=== PATIENT | male | born 2000 | race Caucasian/White ===

== ENCOUNTER 2024-07-15 16:33 | Outpatient (CLI) | payer MEDICARE, MEDICAID, SELFPAY ==
--- OUTSIDE RECORDS SUMMARY | 2024-07-15 16:37 | XMS_ITS | Encounter Summary ---
Author Organization [facility] Address [address] [place] [id number] Care Team Providers Care Log Washer Name Role Phone Catia Fontana Jane PA-C Primary Care Provider Vanessa Mathew RN Unavailable [phone] Emily Ross RN Unavailable Unavailable Ari Gee MA Unavailable Unavailable Josefa Mcneil PA-C Unavailable Chaya Nicholson PA-C Unavailable Angelika Coronel MD Unavailable [phone] Angelika Coronel MD Unavailable [phone] Aracelis Borja PhD LP Unavailable [phone] Reason for Visit * Clinically Administered Medications (Routine) - Pending Review Specialty Diagnoses / Procedures Referred By Anjelica gardner Referred To Contact Neurology Diagnoses Cervical dystonia Procedures ZZC BOTULINUM TOXIN A PER 1 UNIT 400 units every 12 weeks Angelika Coronel MD [address] [place] [id number] [facility] [address] [place] [id number] Referral ID Status Reason Start Date Expiration Date V isits Requested Visits Authorized [id number] Pending Review 11/18/2023 10/05/2024 100 100 Encounter Details Date Type Department Care Team (Late st Contact Info) Description 05/18/2024 4:00 PM CDT Office Visit [facility] [address] [place] [address] Angelika Coronel MD [address] [place] [phone] Cervical dystonia (Primary Dx) Social History Tobacco Use Types Packs/Day Years Used Date Smoking Tobacco: Never Smokeless Tobacco: Never Alcohol Use Standard Drinks/Week Comments Never 0 (1 standard drink = 0.6 oz pur e alcohol) AUDIT-C Answer Date Recorded Q1: How often do you have a drink containing alc ohol? Never 02/22/2021 Q2: How many drinks containi ng alcohol do you have on a typical day when you are drinking? Not asked 02/22/2021 Q3: How often do you have six or more drinks on one occasion? Never 02/22/2021 PHQ-2 Answer Date Recorded PHQ-2 Score 0 11/18/2023 Adolescent Education Answer Date Record ed Getting School Help Needed Not on file 07/04 Sex and Gender Information Value Date Recorded Sex Assigned at Male 06/21/2021 8:10 AM CDT Gender Identity Male 06/21/2021 8:10 AM CDT Sexual Orientation Not on file documented as of this encounter Progress Notes * Angelika Coronel MD - 05/18/2024 4:00 PM CDT Movement Disorders Botulinum Toxin Clinic Note Chief Complaint: cervical dystonia History of Present Illness: Davi Strong is a 23 year old male who presents to clinic for botulinum toxin injections for treatment of cervical dystonia. Response to Last Injection: 02/17/24 Onset: About one day, he notices benefit very quickly Benefit from last injections: Did not work as well as previously and neck wanted to go up and to the left. [place] the tightness was 8/10 initially but then got worse about a week later with more pulling. Feels that his movement to the left and right we're less bothersome than up and down Improvement in function/activity: It makes everything easier. All ADLs are easier when botulinum toxin is working. Easier to drive. Wearing off: March 06 (2.5 weeks after injection) Side effects: Feels more tightness this time with more pulling up and left as above. Current Outpatient Medications Medication Sig Dispense Refill acetaminophen (TYLENOL) 325 MG tablet Take 325-650 mg by mouth every 6 hours as needed for mild pain trihexyphenidyl (ARTANE) 2 MG tablet 1/2 tab twice a day for one week then increase to 1/2 tab three times a day for one week then increase to 1 pills three times a day and stay at that dose. (Patient not taking: Reported on 05/18/2024) 90 tablet 5 Allergies: He has No Known Allergies. 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 Depression Neck pain PONV (postoperative nausea and vomiting) S/P deep brain stimulator placement Torsion dystonia Past Surgical History: Procedure Laterality Date ANESTHESIA OUT OF OR MRI ANESTHESIA OUT OF OR MRI N/A 04/12/2021 Procedure: ANESTHESIA OUT OF OR Magnetic resonance imaging Brain @1200; Surgeon: GENERIC ANESTHESIAPROVIDER; Location: [facility] ANESTHESIA OUT OF OR MRI N/A 07/13/2021 Procedure: ANESTHESIA OUT OF OR MAGNETIC RESONANCE IMAGING of BRAIN WITH AND WITHOUT CONTRAST@1400;Surgeon: GENERIC ANESTHESIA PROVIDER; Location: [facility] EYE SURGERY IMPLANT DEEP BRAIN STIMULATION GENERATOR / BATTERY Right 01/21/2022 Procedure: Deep brain stimulator placement, phase II, placement of deep brain stimulator generator/battery over the right chest wall; Surgeon: Toni Blankenship MD; Location: [facility] NOSE SURGERY nasal fracture repair OPTICAL TRACKING SYSTEM INSERTION DEEP BRAIN STIMULATION Right 01/14/2022 Procedure: stealth assisted Right side deep brain stimulator placement, phase I, target right globus pallidus internus, with microelectrode recording; Surgeon: Toni Blankenship MD; Location: [facility] OPTICAL TRACKING SYSTEM INSERTION DEEP BRAIN STIMULATION Left 02/04/2022 Procedure: Stealth Assisted Left side deep brain stimulator placement, phase I & II combined, target left globus pallidus internus, with microelectrode recording and connection to existing generator/battery; Surgeon: Toni Blankenship MD; Location: [facility] REMOVE DEPTH ELECTRODES N/A 05/28/2021 Procedure: Removal of entire deep brain stimulation system hardware including intracranial electrodes and battery/generator in chest wall; Surgeon: Toni Blankenship MD; Location: [facility] STEREOTACTIC INSERTION DEEP BRAIN STIMULATION Social History Socioeconomic History Marital status: Single Spouse name: Not on file Number of children: 0 Years of education: Not on file Highest education level: Not on file Occupational History Occupation: unemployed Tobacco Use Smoking status: Never Smokeless tobacco: Never Substance and Sexual Activity Alcohol use: Never Drug use: Never Sexual activity: Not on file Other Topics Concern Not on file Social History Narrative Not on file Social Determinants of Health Financial Resource Strain: Not on file Food Insecurity: Not on file Transportation Needs: Not on file Physical Activity: Not on file Stress: Not on file Social Connections: Not on file Interpersonal Safety: Not on file Housing Stability: Not on file Family History Problem Relation Age of Onset No Known Problems Mother No Known Problems Father No Known Problems Sister Other - See Comments Brother di tom syndrome Myocardial Infarction Maternal Grandmother Hyperlipidemia Maternal Grandmother Hyperlipidemia Maternal Grandfather Unknown/Adopted Paternal Grandmother Unknown/Adopted Paternal Grandfather Deep Vein Thrombosis No family hx of Anesthesia Reaction No family hx of Physical Examination: Vital Signs: vitals were not taken for this visit. Severe retrocollis Right shoulder elevation Reported tightness at left side, back of the neck when looking to the left. Less tightness when looking to the right but some still present. To lower head, needs to look to the left and then down. BOTULINUM NEUROTOXIN INJECTION PROCEDURES: VERIFICATION OF PATIENT IDENTIFICATION AND PROCEDURE Initials Patient Name [facility] Patient [facility] Procedure Verified by: [facility] Above assessments performed by: Angelika Coronel MD INDICATION/S FOR PROCEDURE/S: Davi Strong is a 23 year old patient with dystonia affecting the head, neck and shoulder girdlemusculature secondary to a diagnosis of generalized dystonia with associated tremor, spasms, loss of volitional motor control and difficulty with activities of daily living. His baseline symptoms have been recalcitrant to oral medications and conservative therapy. He is here today for an injection of Botox. GOAL OF PROCEDURE: The goal of this procedure is to improve volitional motor control associated with dystonic movements. TOTAL DOSE ADMINISTERED: Dose Administered: 385 units Botox Diluent Used: Preservative Free Normal Saline Total Volume of Diluent Used: [address] [facility] #: Botox 100u ([id number]) CONSENT: The risks, benefits, and treatment options were discussed with Davi Strong and he agreed to proceed. Written consent was obtained by [facility]. EQUIPMENT USED: Needle-37mm stimulating/recording EMG/NCS Machine SKIN PREPARATION: Skin preparation was performed using an alcohol wipe. GUIDANCE DESCRIPTION: Electro-myographic guidance was necessary throughout the procedure to accurately identify all areasof dystonic muscles while avoiding injection of non-dystonic muscles, neighboring nerves and nearbyvascular structures. AREA/MUSCLE INJECTED: Visual display of locations injections are scanned into the chart under MEDIA tab. Muscles Injected Units Injected Number of Injections Left splenius capitis 75 (75) 2 Left cervical paraspinals 80 (80) 4 Left trapezius 65 (65) 3 Right splenius capitis 60 (60) 2 Right cervical paraspinals 80 (80) 4 Right SCM 5 (5) 1 Right Trapezius 20 (20) 1 Total Units Injected: 385 Unavoidable Waste: 15 Total Units Billed 400 The patient tolerated the injections without difficulty. Assessment: Davi Strong is a 23 year old male with generalized dystonia. Today we did repeat botulinum toxin injections. Plan Follow-up in 3 months' time to consider repeat injections. Toni Otoole MD Neuromodulation/Movement Disorders Fellow Patient seen and discussed with attending neurologist Dr. Angelika Coronel Neurology Attending Attestation: I personally saw this patient with our fellow and agree with the their findings and plan of care asdocumented in the note. I personally performed salient aspects of the history and neurological examination. I performed and supervised the injections. Angelika Coronel MD Assistant Child Care Teacher of Neurology Movement Disorders Division documented in this encounter Plan of Treatment Upcoming Encounters Date Type Department Care Team (Late st Contact Info) Description 08/19/2024 12:00 PM CODING EDUCATOR Office Visit [facility] [address] [place] [address] Marisel Garcia DO [address] [place] [phone] documented as of this encounter Procedures Procedure Name Priority Date/Time Associated Diagnosis Comments [place] NEEDLE EMG GUIDE W CHEMODENERVATION Routine 05/19/2024 9:33 AM CDT Cervical dystonia [place] CHEMODENERVATION MUSCLE NECK UNILAT Routine 05/19/2024 9:33 AM CDT Cervical dystonia documented in this encounter Visit Diagnoses Diagnosis Cervical dystonia- Primary Spasmodic torticollis documented in this encounter Administered Medications Active Administered Medications - up to 3 most recent administrations Medication Order MAR Action Action Date Dose Rate Site botulinum toxin type A (BOTOX) 100 units injection 400 Units 400 Units, Intramuscular, SEE ADMIN INSTRUCTIONS, Starting on Fri11/18/23 at 1406, For 4 doses, 400 units every 12 weeks $Given by Other 05/18/2024 5:12 PM CDT 385 Units $Given by Other 02/17/2024 3:18 PM CDT 385 Units documented in this encounter Additional Health Concerns Assessment Noted Time PHQ-9 Depression Total Score: 3 02/22/20 11:51 AM CDT documented as of this encounter Care Teams Log Washer Relationship Specialty Start Date End Date Catia Fontana PA-C [facility] [address], [place] [address] PCP - General Physician Trimmer And Reinforcer 02/15/21 Vanessa Mathew RN Specialty Lap Winder Neurology 02/22/21 Emily Ross, JIM Specialty Lap Winder 02/28/21 Ari Gee MA Motor Electrician Neurology 03/20/21 Josefa Mcneil PA-C [facility] [address] [id number] Physician Trimmer And Reinforcer Pediatric Critical Care Medicine 03/23/21 Chaya Nicholson PA-C [address] [place] [address] [phone] Physician Trimmer And Reinforcer Anesthesiology 06/28/21 Angelika Coronel MD [address] [place] [phone] Neurology 08/06/22 Angelika Coronel MD [address] [place] [address] Assigned Neuroscience Provider 09/07/22 Aracelis Borja, PhD LP [address] [place] [address] Assigned Behavioral Health Provider 02/01/23 documented as of this encounter
--- OUTSIDE RECORDS SUMMARY | 2024-07-15 16:37 | XMS_ITS | Referral Summary ---
Author Organization [place] Address [facility] [place] [address] Care Team Providers Care Metal Trim Erector Name Role Phone Catia Fontana Jane PA-C Primary Care Provider Vanessa Mathew RN Unavailable [phone] Emily Ross RN Unavailable Unavailable Ari Gee MA Unavailable Unavailable Josefa Mcneil PA-C Unavailable Chaya Nicholson PA-C Unavailable [phone] Angelika Coronel MD Unavailable [phone] Angelika Coronel MD Unavailable [phone] Aracelis Borja PhD LP Unavailable [phone] Encounters Date Type Department Care Team Description 06/09/2024 Telephone [facility] Neurology [address] [address] Duy Wilson MD Appointment (Neurotoxin) 06/03/2024 Telephone [facility] Neurology [address] [address] Duy Wilson MD Appointment 05/19/2024 MyC Medical Advice [facility] Neurology [address] 3rd [place] [address] Angelika Coronel MD 05/18/2024 Orders Only [facility] [address] [place] [phone] Julian Morataya MD Exposure to blood or body fluid (Primary Dx) 05/18/2024 4:45 PM CDT Lab [facility] Lab [address] [place] [address] Exposure to blood or body fluid 05/18/2024 Travel 05/18/2024 3:00 PM CDT Office Visit [facility] [address] [place] [address] Angelika Coronel MD Generalized torsion dystonia (Primary Dx); S/P deep brain stimulator placement 05/18/2024 4:00 PM CDT Office Visit [facility] [address] [place] [address] Angelika Coronel MD Cervical dystonia (Primary Dx) from Last 3 Months Allergies No known active allergies Medications Medication Sig Dispensed Refills Start Date End Date Status acetaminophen (TYLENOL) 325 MG tablet Take 325-650 mg by mouth every 6 hours as needed for mild pain Active trihexyphenidyl (ARTANE) 2 MG tabletIndications:G eneralized torsion dystonia 1/2 tab twice a day for one week then increase to 1/2 tab three times a day for one week then increase to 1 pills three times a day and stay at that dose. 90 tablet 5 02/17/2024 Active Additional Information Patient not taking.Reported on 05/18/2024 Hospital, Clinic, or Other Facility Administered Medication Ordered Dose Route Frequency Start Date End Date Status botulinum toxin type A (BOTOX) 100 units injection 300 UnitsIndications:Cer vical dystonia 300 Units IM SEE ADMIN INSTRUCTIONS 07/07/2023 Active botulinum toxin type A (BOTOX) 100 units injection 400 UnitsIndications:Cer vical dystonia 400 Units IM SEE ADMIN INSTRUCTIONS 11/18/2023 Active Active Problems Patient Care Coordination No te Formatting of this note is d ifferent from the original. Right Left DBS Lead Medtronic Sensight Directional [id number] Medtronic Sensight Directional [id number] Target GPi GPi Sonya hole Model [id number] Model [id number] Lead implant date 01/14/22 02/04/22 IPG # [address] Krzysztof Blankenship Right IPG # 1 IPG Medtronic Activa RC model [id number] IPG Location Chest Extensions Model [id number] Pocket adapters None IPG implant date 01/21/[address] Blankenship Consent on file for Estee (mom) and Rayshawn (dad) signed 02/20/21. 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/29/2019 Dystonia 09/09/2018 Movement disorder 09/09/2018 Presence of other specified functional implants 09/09/2018 Overview: Sep 2013 Social History Tobacco Use Types Packs/Day Years Used Date Smoking Tobacco: Never Smokeless Tobacco: Never Tobacco Cessation:Counseling Given: Not Answered Alcohol Use Standard Drinks/Week Comments Never 0 [...] AM CDT Sexual Orientation Not on file Last Filed Vital Signs Vital Sign Reading Time Taken Comments Blood Pressure 120/80 05/18/2024 3:06 PM CDT Pulse 112 05/18/2024 3:06 PM CDT Temperature 36.6 ??C (97.8 ??F) 02/05/2022 7:37 AM CD T Respiratory Rate 20 05/18/2024 3:06 PM CDT Oxygen Saturation 97% 05/18/2024 3:06 PM CDT Inhaled Oxygen Concentration - - Weight 64.1 kg (141 lb 6.4 oz) 07/02/2022 9:59 A M CDT Height 167.6 cm (5' 6) 02/04/2022 5:47 AM CDT Body Mass Index 22.82 02/04/2022 5:47 AM CDT Plan of Treatment Upcoming Encounters Date Type Department Care Team (Late st Contact Info) Description 08/19/2024 12:00 PM WINCH DRIVER Office Visit [facility] Clinic [address] [address] Marisel Garcia, [address] [address] Medical Devices Implanted Type Area Steward/Stewardess Dining Room Device Identifier Shelf Expiration Date Model / Serial / Lot Imp Scr Syn Matrix Low Pro 1.5x04mm Self Drill .104.01 - [id number] Implanted:Qty: 2 on 01/14/2022 by Toni Blankenship MD at [facility] Metallic Hardware/Anc hor Right: Cranial SYNTHES-STRATE C 04503.1 04.01 / / NA Imp Plate Syn Box Low Profile 04h Ti 421.511 - [id number] Implanted:Qty: 1 on 02/04/2022 by Toni Blankenship MD at [facility] Metallic Hardware/Anc hor Left: Cranial SYNTHES-STRATE C 421.511 / / NA Imp Scr Syn Matrix Low Pro 1.5x04mm Self Drill 104.01 - [id number] Implanted:Qty: 3 on 02/04/2022 by Toni Blankenship MD at [facility] Metallic Hardware/Anc hor Left: Cranial SYNTHES-STRATE C 04.503.1 01.04 / / NA Neurostimulator Medt Activa Rc Chargeable 29702 - [id number] Implanted:Qty: 1 on 01/21/2022 by Toni Blankenship MD at [facility] Neurology device Right: Chest [employer]-NEURO 04/18/2022 [id number] / [id number] / [id number] Sensight [place] Hole Device Implanted:Qty: 1 on 01/14/2022 by Toni Blankenship MD at [facility] Right: Cranial [employer]TRONIC 03/26/2023 [id number] / / [id number] Directional Lead Kit Implanted:Qty: 1 on 01/14/2022 by Toni Blankenship MD at [facility] Right: Cranial [employer]TRONIC 09/13/2023 [id number] / [id number] / Sensight Extension Kit Implanted:Qty: 1 on 01/21/2022 by Toni Blankenship MD at [facility] Right: Neck 06/06/2023 [id number] / [id number] / Sensight Connector Plug Implanted:Qty: 1 on 01/21/2022 by Toni Blankenship MD at [facility] Right: Neck 03/27/2023 [id number] / / [id number] Sensight Extension Kit Implanted:Qty: 1 on 01/21/2022 by Toni Blankenship MD at [facility] Right: Neck 10/23/2023 [id number] / [id number] / Sonya Hole Cover Implanted:Qty: 1 on 02/04/2022 by Toni Blankenship MD at [facility] Left: Cranial MEDTRONIC 08/06/2023 [id number] / / [id number] Screw For Sonya Hole Cover Implanted:Qty: 1 on 02/04/2022 by Toni Blankenship MD at [facility] Left: Cranial [employer]TRONIC 06/27/2023 [id number] / / [id number] Lead Kit Implanted:Qty: 1 on 02/04/2022 by Toni Blankenship MD at [facility] Left: Cranial MEDTRONIC 12/28/2023 [id number] / [id number] / Explanted Type Area Steward/Stewardess Dining Room Device Identifier Shelf Expiration Date Model / Serial / Lot Medtronic Dbs Neurostimulator Explanted:Qty: 1 on 05/28/2021 at [facility] Neurology device MEDTRONIC [id number] / / Description:Per Vanessa Mathew I nvestigation (02/21/21): -1.5T Scanner only -MR Conditional Full Body scan eligible -Turn Therapy off - Controller must be present Procedures Procedure Name Priority Date/Time Associated Diagnosis Comments [place] ANALYSIS NEUROSTIM PULSE GEN/TRANS, W/O PROGRAMING Routine 05/19/2024 9:37 AM CDT S/P deep brain stimulator placement [place] NEEDLE EMG GUIDE W CHEMODENERVATION Routine 05/19/2024 9:33 AM CDT Cervical dystonia [place] CHEMODENERVATION MUSCLE NECK UNILAT Routine 05/19/2024 9:33 AM CDT Cervical dystonia EOHS & IP BBFE PANEL: SOURCE EMPLOYEE OR PATIENT STAT 05/18/2024 4:55 PM CDT Exposure to blood or body fluid HEPATITIS C RNA, QUANTITATIVE BY PCR STAT 05/18/2024 4:55 PM CDT Exposure to blood or body fluid HEPATITIS B SURFACE ANTIGEN STAT 05/18/2024 4:55 PM CDT Exposure to blood or body fluid HIV ANTIGEN ANTIBODY COMBO STAT 05/18/2024 4:55 PM CDT Exposure to blood or body fluid HIV RAPID ANTIBODY SCREEN STAT 05/18/2024 4:55 PM CDT Exposure to blood or body fluid from Last 3 Months Results * HIV Antigen Antibody Combo [place] (05/18/2024 4:55 PM CDT) Pathologist [facility] HIV Antigen Antibody Combo Nonreactive Nonreactive 05/18/2024 6:30 PM CDT [facility] Comment:Negative HIV-1 p24 a ntigen and HIV-1/2 antibody screening test results usually indicate the absence of HIV-1 and HIV-2 infection. However, such negative results do not rule-out acute HIV infection. If acute HIV-1 or HIV-2 infection is suspected, detection of HIV-1 or HIV-2 RNA is recommended. Blood STRUCTURE OF RIGHT UPPER LIMB / Unknown Venipuncture / Unknown 05/18/2024 4:55 PM CDT 05/18/2024 4:55 PM CDT Julian Morataya MD LAB - BLOOD [facility] Performing Organization Address [facility] Co de Phone Number [facility] [address] [facility] * HIV Rapid Antibody Screen (05/18/2024 4:55 PM CDT) [facility] HIV-1/HIV-2 Antibody Non Reactive Non Reactive KYLE 05/18/2024 6:30 PM CDT [facility] HIV1 P24 Antigen Non Reactive Non Reactive [facility] 05/18/2024 6:30 PM CDT [facility] HIV Interpretation KYLE 05/18/2024 6:30 PM CDT [facility] Comment:No HIV-1 or HIV-2 an tibodies or HIV-1 p24 antigen were detected. Blood STRUCTURE OF RIGHT UPPER LIMB / Unknown Venipuncture / Unknown 05/18/2024 4:55 PM CDT 05/18/2024 4:55 PM CDT Narrative [facility] - 05/18/2024 6:30 PM CDT All positive rapid HIV 1/2 Ag/Ab samples need to be confirmed by a second HIV 1/2 Ag/Ab Combination test. Julian Morataya MD LAB - BLOOD [facility] Performing Organization Address [facility]/ZIP Co de Phone Number [facility] [address] [facility] * Hepatitis C RNA, Quantitative by PCR (05/18/2024 4:55 PM CDT) Hepatitis C RNA IU/mL Not Detected Not Detected IU/mL 05/20/2024 10:50 AM CDT [facility] Blood STRUCTURE OF RIGHT UPPER LIMB / Unknown Venipuncture / Unknown 05/18/2024 4:55 PM CDT 05/18/2024 4:55 PM CDT Narrative [facility] - 05/20/2024 10:50 AM CDT The pete?? Hepatitis C assay is an FDA-approved in vitro nucleic acid amplification test for the quantification of Hepatitis C virus (HCV) RNA in human EDTA plasma or serum, using the Amalia pete?? 6800 instrument for automated viral nucleic acid extraction, purification, amplification, and detection of the viral nucleic acid target. This assay utilizes dual probes to detect and quantify, but not discriminate genotypes 1-6. The test is intended for use as an aid in the diagnosis of HCV infection and an aid in the management of HCV-infected patients undergoing anti- viral therapy. Titer results are reported in IU/mL. Julian Morataya MD LAB - BLOOD [facility]. [facility] [address] [facility], [address] [place] [address], [facility] * Hepatitis B surface antigen (05/18/2024 4:55 PM CDT) Pathologist [facility] Hepatitis B Surface Antigen Nonreactive Nonreactive 05/18/2024 6:30 PM CDT [facility] Blood STRUCTURE OF RIGHT UPPER LIMB / Unknown Venipuncture / Unknown 05/18/2024 4:55 PM CDT 05/18/2024 4:55 PM CDT Julian Morataya MD LAB - BLOOD [facility] [address] [facility], [address] [place] [address], [facility] from Last 3 Months Care Teams Metal Trim Erector Relationship Specialty Start Date End Date Catia Fontana PA-C [facility] [address] [place] [address] PCP - General Physician Fraternity House Cook 02/15/21 Vanessa Mathew RN Specialty Renderer Neurology 02/22/21 Emily Ross, JIM Specialty Renderer 02/28/21 Ari Gee MA Director Of Perioperative Services Neurology 03/20/21 Josefa Mcneil PA-C [facility], SURGERY [address] [facility] [address] [place] [address] Physician Fraternity House Cook Pediatric Critical Care Medicine 03/23/21 Chaya Nicholson PA-C [address] [facility] [address] [place] [address] Physician Fraternity House Cook Anesthesiology 06/28/21 Angelika Coronel MD [address] [place] [address] Neurology 08/06/22 Angelika Coronel MD [address] [place] [address] Assigned Neuroscience Provider 09/07/22 Aracelis Borja, PhD LP [address] [place] [address] Assigned Behavioral Health Provider 02/01/23
--- OUTSIDE RECORDS SUMMARY | 2024-07-15 16:37 | XMS_ITS | Encounter Summary ---
Author Organization [place] Address [address] [place] [address] Care Team Providers Care Piping Blocker Name Role Phone Catia Fontana Jane PA-C Primary Care Provider Vanessa Mathew RN Unavailable [phone] Emily Ross RN Unavailable Unavailable Ari Gee MA Unavailable Unavailable Josefa Mcneil PA-C Unavailable Chaya Nicholson PA-C Unavailable [phone] Angelika Coronel MD Unavailable [phone] Angelika Coronel MD Unavailable [phone] Aracelis Borja PhD LP Unavailable [phone] Reason for Visit * Reason Comments DBS Programming Encounter Details Date Type Department Care Team (Late st Contact Info) Description 05/18/2024 3:00 PM CDT Office Visit [facility] Neurology Clinic [address] [place] [address] Angelika Coronel MD [address] [place] [address] Generalized torsion dystonia (Primary Dx); S/P deep brain stimulator placement Social History Tobacco Use Types Packs/Day Years [...] on file documented as of this encounter Last Filed Vital Signs Vital Sign Reading Time Taken Comments Blood Pressure 120/80 05/18/2024 3:06 PM CDT Pulse 112 05/18/2024 3:06 PM CDT Temperature - - Respiratory Rate 20 05/18/2024 3:06 PM CDT Oxygen Saturation 97% 05/18/2024 3:06 PM CDT Inhaled Oxygen Concentration - - Weight - - Height - - Body Mass Index - - documented in this encounter Progress Notes * Toni Otoole MD - 05/18/2024 3:00 PM CDT Department of Neurology Movement Disorders Division DBS Follow-up Note Patient: Davi Strong : 2000 Date of Visit: 05/18/2024 Diagnosis: Dystonia DBS Target(s): Bilateral GPi Date(s) of DBS Lead Placement: R 01/14/2022, L 02/04/2022 Date(s) of IPG Placement: R chest 01/21/2022 Device: Medtronic Activa RC Chief Complaint: Davi Strong is a 23 year old male who returns to clinic for follow up of 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 He was last seen for programming on 02/17/24 at which time Groups C and Dwere delete and the amplitude on R GPI2 was increased. In addition, he was instructed to start a Artane uptitration to 2 mg three times daily after trying Program B Interval History: Since the last visit he reports that that he has had more tightness and didn't try the Artane. He felt that he would not need the relaxation all the time and only needed it PRN so he wasn't sure it was a good idea. Has had more pulling up and to the left and feels the Botox did not work as well this time around. Group A has gone well enough that he didn't feel that he needed an increase Group B did not try as he forgot Left hand can open somewhat but is fairly stable. Walking is stable but no worsened. On 04/08/24 hehad a piercing sensation around his right chest IPG. This occurred for ~1 second once and then cameback and lasted for ~10secs. He felt like his chest in that area was a bit more warm. He did not feel that his dystonia was worse during this period and it did not recur. Medications: Current Outpatient Medications Medication Sig Dispense Refill [...] Reported on 05/18/2024) 90 tablet 5 Allergies: has No Known Allergies. Physical Exam: The patient's blood pressure is 120/80 and his pulse is 112. His respiration is 20 and oxygen saturation is 97%. Neurological Examination: Severe retrocollis Able to flex neck barely past midline Right shoulder elevation Good rotation bilaterally (but feels harder to left) Left hand fisted but able to slowly open Upright posture with standing Slight left lean with gait Procedure: DBS Interrogation & Programming Lead(s): Left Right DBS Target Left GPi Right GPi DBS Lead Type SenSight SenSight Lead Placement Date 02/04/2022 01/14/2022 IPG(s): 1 IPG Activa-RC IPG Implant Date 01/21/2022 Location Right chest Battery (V) 100%, STEPHANIE 01/19/36 Impedance Check: No problems found. See scanned report for impedance details. Group A Left Brain Right Brain Initial Final Initial Final GPi 1 GPi 2 GPi 1 GPi 2 GPi 1 GPi 2 GPi 1 GPi 2 Active Active Active Active Active Active Active Active Amplitude (V) 2.5 2.0 2.5 2.0 4.0 6.0 [0-7.0] 4.0 6.0 [0-7.0] Pulse width (usec) 60 60 60 60 90 90 90 90 Freq (Hz) 125 125 125 125 125 125 125 125 Contacts: C+3- C+2abc- C+3- C+2abc- C+11- C+10a- C+11- C+10a- Impedance 1,257/2.0 1313/1.5 1,257/2.0 1313/1.5 1522/2.6 2234/2.7 1522/2.6 2234/2.7 Group B Left Brain Right Brain Initial Final Initial Final GPi 1 GPi 2 GPi 1 GPi 2 GPi 1 GPi 2 GPi 1 GPi 2 Inactive Inactive Inactive Inactive Inactive Inactive Inactive Inactive Amplitude (V) 2.5 2.0 [0-2.6] 2.5 2.0 4.0 5.5 [0-5.5] 4.0 5.5 [0-5.5] Pulse width (usec) 60 60 60 60 90 120 90 120 Freq (Hz) 125 125 125 125 125 125 125 125 Contacts: C+3- C+2abc- C+3- C+2abc- C+11- C+10a- C+11- C+10a- Programming notes: No changes made today Assessment/Plan: Davi Strong is a 23 year old male with generalized dystonia s/p bilateral GPi DBS who returns for follow-up. Program A has done well for the patient and has not tried program B. The patient didn't start Artane as he feels like he needs a PRN option. Overall he feels like the Botox has been significantly less efficacious and that's the bigger problem right now so we will hold off on other changes and instead make changes to the Botox. Please see the Botox note from this date for specifics onhow this was changed. We will hold off on Artane for now but consider restarting this in the future - Continue on Program A - Try Program B - Will hold off on Artane for now but could consider starting it in the future - RTC 12 weeks, 1 hr DBS programming and botulinum toxin Mr. Strong was seen and discussed with movement disorders attending, Dr. Homer Otoole MD Neuromodulation/Movement Disorders Fellow Associated attestation - Angelika Coronel MD - 05/19/2024 9:37 AM CDT Neurology Attending Attestation: I personally saw this patient with our fellow and agree with the their findings and plan of care asdocumented in the note. I personally performed salient aspects of the history and neurological examination. I personally reviewed the vital signs and medications. Angelika Coronel MD Cable Maintainer of Neurology Movement Disorders Division Additional time spent for separate DBS programmin min DBS analyzed without reprogramming. documented in this encounter Nursing Notes * Shayan Fox - 05/18/2024 3:00 PM CDT Chief Complaint Patient presents with DBS Programming BP 120/80 (BP Location: Right arm, Patient Position: Sitting, Cuff Size: Adult Regular) Pulse 112 Resp 20 SpO2 97% SHAYAN FOX documented in this encounter Plan of Treatment Upcoming Encounters Date Type Department Care Team (Late st Contact Info) Description 08/19/2024 12:00 PM SALES SERVICE REPRESENTATIVE Office Visit [facility] Neurology Clinic [address] [address] Marisel Garcia DO [address] [place] [address] [phone] documented as of this encounter Procedures Procedure Name Priority Date/Time Associated Diagnosis Comments [place] ANALYSIS NEUROSTIM PULSE GEN/TRANS, W/O PROGRAMING Routine 05/19/2024 9:37 AM CDT S/P deep brain stimulator placement documented in this encounter Visit Diagnoses Diagnosis Generalized torsion dystonia- Primary S/P deep brain stimulator placement documented in this encounter Additional Health Concerns Assessment Noted Time PHQ-9 Depression Total Score: 3 02/22/20 21 11:51 AM CDT documented as of this encounter Care Teams Piping Blocker Relationship Specialty Start Date End Date Catia Fontana PA-C [facility] [address] [place] [address] PCP - General Physician Associate Web Developer 02/15/21 Vanessa Mathew RN Specialty Engine Oiler Neurology 02/22/21 Emily Ross, JIM Specialty Engine Oiler 02/28/21 Ari Gee MA Accounting/Finance Tutor Neurology 03/20/21 Josefa Mcneil PA-C [facility], SURGERY [address] [place] [address] Physician Associate Web Developer Pediatric Critical Care Medicine 03/23/21 Chaya Nicholson PA-C [address] [place] [address] Physician Associate Web Developer Anesthesiology 06/28/21 Angelika Coronel MD [address] [place] [address] Neurology 08/06/22 Angelika Coronel MD [address] [place] [address] Assigned Neuroscience Provider 09/07/22 Aracelis Borja, PhD LP [address] [place] [address] [phone] Assigned Behavioral Health Provider 02/01/23 documented as of this encounter
--- OUTSIDE RECORDS SUMMARY | 2024-07-15 16:37 | XMS_ITS | Encounter Summary ---
Author Organization [place] Address [address] [facility] [place] [address] Care Team Providers Care Credit Or Loans Officer Name Role Phone Catia Fontana Jane PA-C Primary Care Provider Vanessa Mathew RN Unavailable [phone] Emily Ross RN Unavailable Unavailable Ari Gee MA Unavailable Unavailable Josefa Mcneil PA-C Unavailable [phone] Chaya Nicholson PA-C Unavailable [phone] Angelika Coronel MD Unavailable [phone] Angelika Coronel MD Unavailable [phone] Aracelis Borja PhD LP Unavailable + [phone] Encounter Details Date Type Department Care Team (Late st Contact Info) Description 05/18/2024 Orders Only [facility] Hospitalist Program [address] [place] [address] Julian Morataya MD [address] [facility] [address] [place] [address] Exposure to blood or body fluid (Primary Dx) Social History Tobacco Use Types [...] on file documented as of this encounter Plan of Treatment Upcoming Encounters Date Type Department Care Team (Late st Contact Info) Description 08/19/2024 12:00 PM DRAW FRAME TENDER Office Visit [facility] Neurology [address] [phone] Marisel Garcia DO [address] [place] [address] documented as of this encounter Visit Diagnoses Diagnosis Exposure to blood or body fluid- Primary Personal history of contact with and (suspected) exposure to potentially hazardous body fluids documented in this encounter Additional Health Concerns Assessment Noted Time PHQ-9 Depression Total Score: 3 02/22/20 11:51 AM CDT documented as of this encounter Care Teams Credit Or Loans Officer Relationship Specialty Start Date End Date Catia Fontana PA-C [facility] [address] [address] PCP - General Physician Radio Division Lieutenant 02/15/21 Vanessa Mathew RN Specialty Embedded Software Developer Neurology 02/22/21 Emily Ross, JIM Specialty Embedded Software Developer 02/28/21 Ari Gee MA Soft Work Cigar Machine Operator Neurology 03/20/21 Josefa Mcneil PA-C [facility] SURGERY [address] [facility] 4TH [place] [address] Physician Radio Division Lieutenant Pediatric Critical Care Medicine 03/23/21 Chaya Nicholson PA-C [address] [facility] 4TH [address] [place], [place] [address] Physician Radio Division Lieutenant Anesthesiology 06/28/21 Angelika Coronel MD [address] [place], [place] 3689[address] Neurology 08/06/22 Angelika Coronel MD [address] [place] [address] 377655 Assigned Neuroscience Provider 09/07/22 Aracelis Borja, PhD LP [address] [place] [address] [id number] Assigned Behavioral Health Provider 02/01/23 documented as of this encounter
--- OUTSIDE RECORDS SUMMARY | 2024-07-15 16:37 | XMS_ITS | Encounter Summary ---
Author Organization [place] Address [address] [place] [address] Care Team Providers Care Cook Helper Pastry Name Role Phone Catia Fontana Jane PA-C Primary Care Provider Vanessa Mathew RN Unavailable [phone] Emily Ross RN Unavailable Unavailable Ari Gee MA Unavailable Unavailable Josefa Mcneil PA-C Unavailable Chaya Nicholson PA-C Unavailable [phone] Angelika Coronel MD Unavailable [phone] Angelika Coronel MD Unavailable [phone] Aracelis Borja PhD LP Unavailable [phone] Encounter Details Date Type Department Care Team (Late st Contact Info) Description 05/19/2024 [facility] Medical Advice [facility] Neurology Clinic [address] [address] Angelika Coronel MD [address] [place] [address] Social History Tobacco Use Types Packs/Day Years [...] st Contact Info) Description 08/19/2024 12:00 PM WEB WEAVER Office Visit [facility] Neurology [address] [place] [phone] Marisel Garcia DO [address] [place] [address] documented as of this encounter Visit Diagnoses Not on filedocumented in this encounter Additional Health Concerns Assessment Noted Time PHQ-9 Depression Total Score: 3 02/22/20 11:51 AM CDT documented as of this encounter Care Teams Cook Helper Pastry Relationship Specialty Start Date End Date Catia Fontana PA-C [facility] [address] [place] [address] PCP - General Physician Behavioral Analyst 02/15/21 Vanessa Mathew RN Specialty Sheet Manager Neurology 02/22/21 Emily Ross, JIM Specialty Sheet Manager 02/28/21 Ari Gee MA Pulp Mixer Neurology 03/20/21 Josefa Mcneil PA-C [facility], SURGERY [address] [place] [address] [address] [place] [address] Physician Behavioral Analyst Pediatric Critical Care Medicine 03/23/21 Chaya Nicholson PA-C [address] [place] [address] [address] [place] [address] Physician Behavioral Analyst Anesthesiology 06/28/21 Angelika Coronel MD [address] [place] [address] Neurology 08/06/22 Angelika Coronel MD [address] [place] [address] 208505 Assigned Neuroscience Provider 09/07/22 Aracelis Borja, PhD LP [address] [place] [address] [id number] Assigned Behavioral Health Provider 02/01/23 documented as of this encounter
--- OUTSIDE RECORDS SUMMARY | 2024-07-15 16:37 | XMS_ITS | Encounter Summary ---
Author Organization [place] Address [address] [place] [address] Care Team Providers Care Plumbing Manager Name Role Phone Catia Fontana Jane PA-C Primary Care Provider Vanessa Mathew RN Unavailable [phone] Emily Ross RN Unavailable Unavailable Ari Gee MA Unavailable Unavailable Josefa Mcneil PA-C Unavailable Chaya Nicholson PA-C Unavailable [phone] Angelika Coronel MD Unavailable [phone] Angelika Coronel MD Unavailable [phone] Aracelis Borja PhD LP Unavailable + [phone] Reason for Visit * Reason Onset Date Comments Appointment 06/03/2024 Encounter Details Date Type Department Care Team (Late st Contact Info) Description 06/03/2024 Telephone [facility] Neurology Clinic [address] [address] Duy Wilson MD [address] [place] [address] [id number] Appointment Social History Tobacco Use Types Packs/Day Years [...] on file documented as of this encounter Miscellaneous Notes * Telephone Encounter - Radha Cannon - 06/09/2024 3:00 PM CDT 2nd attempt to reschedule: Message left for patient to reschedule Botox treatment on August [address] Schaefer. Provider is not able to give botox treatments at the [facility]. Patient has the following options for rescheduling: Schedule with Dr. Schaefer at the [facility] Schedule with Dr. aSms at the [facility]. Patient advised to call [phone] for the purpose of rescheduling. * Telephone Encounter - Radha Cannon - 06/03/2024 1:12 PM CDT Message left for patient to reschedule Botox treatment on August [address] Schaefer. Provider is not able to give botox treatments at the [facility]. Patient has the following options for rescheduling: Schedule with Dr. Schaefer at the [place] location Schedule with Dr. Sams at the [facility]. Patient advised to call [phone] for the purpose of rescheduling. documented in this encounter Plan of Treatment Upcoming Encounters Date Type Department Care Team (Late st Contact Info) Description 08/19/2024 12:00 PM DRUM CARRIER Office Visit [facility] Neurology Clinic [address] [place] [phone] Marisel Garcia DO [address] [place] [address] documented as of this encounter Visit Diagnoses Not on filedocumented in this encounter Additional Health Concerns Assessment Noted Time PHQ-9 Depression Total Score: 3 02/22/20 21 11:51 AM CDT documented as of this encounter Care Teams Plumbing Manager Relationship Specialty Start Date End Date Catia Fontana PA-C [place] [id number] [place] [address] PCP - General Physician Acquisition Professional 02/15/21 Vanessa Mathew RN Specialty Integration Manager Neurology 02/22/21 Emily Ross, JIM Specialty Integration Manager 02/28/21 Ari Gee MA Chinese Language Professor Neurology 03/20/21 Josefa Mcneil PA-C [facility] [address] [place] [address] [address] [place] [address] Physician Acquisition Professional Pediatric Critical Care Medicine 03/23/21 Chaya Nicholson PA-C [address] [place] [address] [address] [place] [address] Physician Acquisition Professional Anesthesiology 06/28/21 Angelika Coronel MD [address] [place] [address] Neurology 08/06/22 Angelika Coronel MD [address] [place] [address] Assigned Neuroscience Provider 09/07/22 Aracelis Borja, PhD LP [address] [place] [address] Assigned Behavioral Health Provider 02/01/23 documented as of this encounter
--- OUTSIDE RECORDS SUMMARY | 2024-07-15 16:37 | XMS_ITS | Encounter Summary ---
Author Organization [place] Address [address] [place] [address] Care Team Providers Care Vp Public Relations Name Role Phone Catia Fontana Jane PA-C Primary Care Provider Vanessa Mathew RN Unavailable [phone] Emily Ross RN Unavailable Unavailable Zoya Morales APRN CANDLES POURER Unavailable + Ari Gee MA Unavailable Unavailable Josefa Mcneil PA-C Unavailable [phone] Chaya Nicholson-C Unavailable + [phone] Chaya Nicholson-C Unavailable + [phone] Angelika Coronel MD Unavailable [phone] Angelika Coronel MD Unavailable [phone] Aracelis Borja PhD LP Unavailable [phone] Encounter Details Date Type Department Care Team (Late st Contact Info) Description 09/25/2022 [facility] Medical Advice [facility] Neurology Clinic [address] [place] [address] Ari Gee MA Social History Tobacco Use Types Packs/Day Years [...] PHQ-2 Answer Date Recorded PHQ-2 Score 0 04/15/2022 Sex and Gender Information Value Date Recorded Sex Assigned at Male 06/21/2021 8:10 AM CDT Gender Identity Male 06/21/2021 8:10 AM CDT Sexual Orientation Not on file COVID-19 Exposure Response Date Recorded In the last 10 days, have yo u been in contact with someone who was confirmed or suspected to have Coronavirus/COVID-19? No / Unsure 09/11/2022 11:48 AM FORGING DIE SINKER documented as of this encounter Plan of Treatment Upcoming Encounters Date Type Department Care Team (Late st Contact Info) Description 08/19/2024 12:00 PM FORGING DIE SINKER Office Visit [facility] Neurology Clinic [address] [phone] Marisel Garcia DO [address] [place] [address] documented as of this encounter Visit Diagnoses Not on filedocumented in this encounter Additional Health Concerns Assessment Noted Time PHQ-9 Depression Total Score: 3 02/22/20 11:51 AM CDT documented as of this encounter Care Teams Vp Public Relations Relationship Specialty Start Date End Date Catia Fontana PA-C [facility] [address], [place] [address] PCP - General Physician Gold Miner 02/15/21 Vanessa Mathew RN Specialty Sewage Treatment Plant Operator Neurology 02/22/21 Emily Ross, RN Specialty Sewage Treatment Plant Operator 02/28/21 Zoya Morales APRN CANDLES POURER [address] [place] [address] Assigned PCP 01/30/21 11/15/22 Ari Gee MA Pediatric Dental Assistant Neurology 03/20/21 Josefa Mcneil PA-C [facility], SURGERY [address] [place] [address] Physician Gold Miner Pediatric Critical Care Medicine 03/23/21 Chaya Nicholson PA-C [address] [place] [address] Physician Gold Miner Anesthesiology 06/28/21 Chaya Nicholson PA-C [address] [place] [address] Assigned Surgical Provider 07/15/21 07/11/23 Angelika Coronel MD [address] [place] [address] Neurology 08/06/22 Angelika Coronel MD [address] [place] [address] Assigned Neuroscience Provider 09/07/22 Aracelis Borja, PhD LP [address] [place] [address] Assigned Behavioral Health Provider 02/01/23 documented as of this encounter
--- OUTSIDE RECORDS SUMMARY | 2024-07-15 16:37 | XMS_ITS | Encounter Summary ---
Author Organization [place] Address [address] [place] [address] Care Team Providers Care Home Administrator Name Role Phone Catia Fontana Jane PA-C Primary Care Provider Vanessa Mathew RN Unavailable [phone] Emily Ross RN Unavailable Unavailable Ari Gee MA Unavailable Unavailable Josefa Mcneil PA-C Unavailable [phone] Chaya Nicholson PA-C Unavailable [phone] Angelika Coronel MD Unavailable [phone] Angelika Coronel MD Unavailable [phone] Aracelis Borja PhD LP Unavailable + [phone] Encounter Details Date Type Department Care Team (Late st Contact Info) Description 05/18/2024 4:45 PM CDT Lab [address] [address] Exposure to blood or body fluid Social History Tobacco Use Types Packs/Day Years [...] st Contact Info) Description 08/19/2024 12:00 PM THERAPIST RADIATION Office Visit [facility] Neurology Clinic [address] [place] [address] Marisel Garcia DO [address] [place] [address] [phone] documented as of this encounter Procedures Procedure Name Priority Date/Time Associated Diagnosis Comments EOHS & IP BBFE PANEL: SOURCE EMPLOYEE [...] CDT Exposure to blood or body fluid documented in this encounter Results * Hepatitis C RNA, Quantitative by PCR [...] MD LAB - BLOOD CLAU COLLINS [facility] Inf. Diseases Diag. Lab [address] [facility], [address] * Hepatitis B surface antigen (05/18/2024 4:55 PM CDT) [facility] Hepatitis B Surface Antigen Nonreactive Nonreactive 05/18/2024 6:30 PM CDT [facility] Blood STRUCTURE OF RIGHT UPPER LIMB / Unknown Venipuncture / Unknown 05/18/2024 4:55 PM CDT 05/18/2024 4:55 PM CDT Julian Morataya MD LAB - BLOOD CLAU COLLINS [facility] [place] [facility] [address] [facility], Room 3[address] * HIV Antigen Antibody Combo [place] (05/18/2024 4:55 PM CDT) HIV Antigen Antibody Combo Nonreactive Nonreactive 05/18/2024 6:30 PM CDT [facility] Comment:Negative HIV-1 p24 a ntigen and [...] Morataya MD LAB - BLOOD CLAU COLLINS [facility] [place] [facility] [address] [facility], [address] [id number] * HIV Rapid Antibody Screen (05/18/2024 4:55 PM CDT) Pathologist [facility] HIV-1/HIV-2 Antibody Non Reactive Non Reactive [facility] 05/18/2024 6:30 PM CDT [facility] HIV1 P24 Antigen Non Reactive Non Reactive [facility] 05/18/2024 6:30 PM CDT [facility] HIV Interpretation [facility] 05/18/2024 6:30 PM CDT [facility] Comment:No [...] - BLOOD CLAU COLLINS Performing Organization Address City/[facility]/ZIP Co de Phone Number [facility] [place] [facility] [address] [facility], [address] [id number] documented in this encounter Visit Diagnoses Diagnosis Exposure to blood or body fluid Personal history of contact with and (suspected) exposure to potentially hazardous body fluids documented in this encounter Additional Health Concerns Assessment Noted Time PHQ-9 Depression Total Score: 3 02/22/20 21 11:51 AM CDT documented as of this encounter Care Teams Home Administrator Relationship Specialty Start Date End Date Catia Fontana PA-C [facility] [address] [place] [address] PCP - General Physician Instructor Of Spanish 02/15/21 Vanessa Mathew RN Specialty Grey Goods Marker Neurology 02/22/21 Emily Ross, JIM Specialty Grey Goods Marker 02/28/21 Ari Gee MA Business Computers Teacher Neurology 03/20/21 Josefa Mcneil PA-C [facility], SURGERY [address] [address] Physician Instructor Of Spanish Pediatric Critical Care Medicine 03/23/21 Chaya Nicholson PA-C [address] [place] [address] Physician Instructor Of Spanish Anesthesiology 06/28/21 Angelika Coronel MD [address] [place] [address] Neurology 08/06/22 Angelika Coronel MD [address] [place] [address] Assigned Neuroscience Provider 09/07/22 Aracelis Borja, PhD LP [address] [place] [address] Assigned Behavioral Health Provider 02/01/23 documented as of this encounter
--- OUTSIDE RECORDS SUMMARY | 2024-07-15 16:37 | XMS_ITS | Clinical Summary ---
Author Organization [facility] Address [address] [place] [address] Care Team Providers Care Customer Sales Consultant Name Role Phone Marizol Namratagabriella MCDONNELLC Primary Care Provider Vanessa Mathew RN Unavailable [phone] Emily Ross RN Unavailable Unavailable Ari Gee MA Unavailable Unavailable Josefa Mcneil PA-C Unavailable [phone] Chaya Nicholson PA-C Unavailable [phone]- [phone] Angelika Coronel MD Unavailable [phone] Angelika Coronel MD Unavailable [phone] Aracelis Borja PhD LP Unavailable + [phone] Allergies No known active allergies Medications Medication [...] Right Left DBS Lead Medtronic Sensight Directional [id number] Medtronic Sensight Directional [id number] Target GPi GPi Sonya hole Model [id number] Model [id number] Lead implant date 01/14/22 02/04/22 IPG # [address] Krzysztof Blankenship Right IPG # 1 IPG Medtronic Activa RC model 20001 IPG Location Chest Extensions Model [id number] Pocket adapters None IPG implant date 01/21/[address] Blankenship Consent on file for Estee (mom) and Rayshawn (dad) signed 02/20/21. 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 Dystonia 09/09/2018 Movement disorder 09/09/2018 Presence of other specified functional implants 09/09/2018 Overview: Sep 2013 Encounters Date Type Department Care Team Description 06/09/2024 Telephone [facility] [address] [address] Duy Wilson MD Appointment (Neurotoxin) 06/03/2024 Telephone [facility] Neurology [address] [address] Duy Wilson MD Appointment 05/19/2024 MyC Medical Advice [facility] [address] [place] [phone] Angelika Coronel MD 05/18/2024 4:45 PM CDT Lab [facility] [address] [place] [phone] Exposure to blood or body fluid 05/18/2024 4:00 PM CDT Office Visit [facility] [address] [place] [phone] Angelika Coronel MD Cervical dystonia (Primary Dx) 05/18/2024 3:00 PM CDT Office Visit [facility] [address] [place] [phone] Angelika Coronel MD Generalized torsion dystonia (Primary Dx); S/P deep brain stimulator placement 05/18/2024 Orders Only [facility] Hospitalist Program [address] [place] [phone] Julian Morataya MD Exposure to blood or body fluid (Primary Dx) 05/18/2024 Travel from Last 3 Months Family History Medical History Relation Comments Other - See Comments Brothgerry vallejo s yndrome No Known Problems Father Hyperlipidemia Maternal Grandfather Hyperlipidemia Maternal Grandmother Myocardial Infarction Maternal Grandmother No Known Problems Mother Unknown/Adopted Paternal Grandfather Unknown/Adopted Paternal Grandmother No Known Problems Sister Anesthesia Reaction No family hx of Deep Vein Thrombosis No family hx of Relation Status Comments Brother Alive Father Alive Maternal Grandfather Alive Maternal Grandmother Alive Mother Alive Paternal Grandfather Paternal Grandmother Alive Sister Alive Social History Tobacco Use Types Packs/Day Years [...] st Contact Info) Description 08/19/2024 12:00 PM [employer] Office Visit [facility] [address] [address] Marisel Garcia, [address] [place] [address] Health Maintenance Due Date Last Done Comments ANNUAL REVIEW OF HM ORDERS 2001 MEDICARE ANNUAL WELLNESS VISIT 2019 DTAP/TDAP/TD IMMUNIZATION (6 - Td or Tdap) 12/18/2023 12/17/2013, 06/20/2006, 2001, Additional history exists COVID-19 Vaccine ( season) 2024 INFLUENZA VACCINE (#1) 2024 8, 07/11/2017, 07/08/2017, Additional history exists ADVANCE CARE PLANNING 07/04/2026 07/04/2021 RSV VACCINE (1 - 1-dose 75+ series) 2076 Pneumococcal Vaccine: Pediatrics (0 to 5 Years) and At-Risk Patients (6 to 64 Years) Aged Out 2001, 2001, 2001 No longer eligible based on patient's age to complete this topic HEPATITIS B IMMUNIZATION Completed 014, 2001, 2001 MENINGITIS IMMUNIZATION Completed 10/11/2019, 04/26 HPV IMMUNIZATION Completed 03/13/2020, 08/2020, 10/13/2019 PHQ-2 (once per calendar year) Completed 11/18/2023, 04/23/2023, 11/05/2022, Additional history exists HEPATITIS C SCREENING Completed 05/18/2024 HIV SCREENING Completed 05/18/2024, 05/18/2024 RSV MONOCLONAL ANTIBODY Aged Out No l onger eligible based on patient's age to complete this topic Medical Devices Implanted Type Area Appliance Counselor Device Identifier Shelf Expiration Date Model / Serial / Lot Imp Scr Syn Matrix Low Pro 1.5x04mm Self Drill .104.01 - [id number] Implanted:Qty: 2 on 01/14/2022 by Toni Blankenship MD at [facility] Metallic Hardware/Anc hor Right: Cranial SYNTHES-STRATE C 503.1 04.01 / / NA Imp Plate Syn Box Low Profile 04h Ti 421.511 - [id number] Implanted:Qty: 1 on 02/04/2022 by Toni Blankenship MD at [facility] Metallic Hardware/Anc hor Left: Cranial SYNTHES-STRATE C 421.511 / / NA Imp Scr Syn Matrix Low Pro 1.5x04mm Self Drill .503.104.01 - [id number] Implanted:Qty: 3 on 02/04/2022 by Toni Blankenship MD at [facility] Metallic Hardware/Anc hor Left: Cranial SYNTHES-STRATE C 503.1 04.01 / / NA Neurostimulator Medt Activa Rc Chargeable 61553 - [id number] Implanted:Qty: 1 on 01/21/2022 by Toni Blankenship MD at [facility] Neurology device Right: Chest [employer]-NEURO 04/18/2022 [id number] / [id number] / [id number] Sensight Angelica Hole Device Implanted:Qty: 1 on 01/14/2022 by Toni Blankenship MD at [facility] Right: Cranial [employer] 03/26/2023 [id number] / / [id number] Directional Lead Kit Implanted:Qty: 1 on 01/14/2022 by Toni Blankenship MD at [facility] Right: Cranial [employer] 09/13/2023 [id number] / [id number] 39 / Sensight Extension Kit Implanted:Qty: 1 on 01/21/2022 by Toni Blankenship MD at [facility] Right: Neck 06/06/2023 [id number] / [id number] 33 / Sensight Connector Plug Implanted:Qty: 1 on 01/21/2022 by Toni Blankenship MD at [facility] Right: Neck 03/27/2023 [id number] / / [id number] Sensight Extension Kit Implanted:Qty: 1 on 01/21/2022 by Toni Blankenship MD at [facility] Right: Neck 10/23/2023 [id number] / [id number] / Sonya Hole Cover Implanted:Qty: 1 on 02/04/2022 by Toni Blankenship MD at [facility] Left: Cranial [employer] 08/06/2023 [id number] / / [id number] 1 Screw For Angelica Hole Cover Implanted:Qty: 1 on 02/04/2022 by Toni Blankenship MD at [facility] Left: Cranial [employer] 06/27/2023 [id number] / / [id number] Lead Kit Implanted:Qty: 1 on 02/04/2022 by Toni Blankenship MD at [facility] Left: Cranial [employer] 12/28/2023 [id number] / [id number] 20 / Explanted Type Area Appliance Counselor Device Identifier Shelf Expiration Date Model / Serial / Lot Medtronic Dbs Neurostimulator Explanted:Qty: 1 on 05/28/2021 at [facility] Neurology device MEDTRONIC [id number] / / Description:Per Vanessa Mathew I nvestigation (02/21/21): -1.5T Scanner only -MR Conditional Full Body scan eligible -Turn Therapy off - Controller must be present Procedures Procedure Name Priority Date/Time Associated Diagnosis Comments CT ANALYSIS NEUROSTIM PULSE GEN/TRANS, W/O PROGRAMING Routine 05/19/2024 9:37 AM CDT S/P deep brain stimulator placement CT NEEDLE EMG GUIDE W CHEMODENERVATION Routine 05/19/2024 9:33 AM CDT Cervical dystonia CT CHEMODENERVATION MUSCLE NECK UNILAT Routine 05/19/2024 9:33 [...] Months Results * HIV Antigen Antibody Combo [place] (05/18/2024 4:55 PM CDT) HIV Antigen Antibody [...] LAB - BLOOD CLAU COLLINS [facility] LABORATORY [facility] [place] [facility] [address] [facility], [address] [id number] * HIV Rapid Antibody Screen (05/18/2024 4:55 PM CDT) [facility] HIV-1/HIV-2 Antibody Non Reactive Non Reactive [facility] 05/18/2024 6:30 PM CDT [facility] HIV1 P24 Antigen Non Reactive Non Reactive [facility] 05/18/2024 6:30 PM CDT [facility] HIV Interpretation [facility] 05/18/2024 6:30 PM CDT [facility] Comment:No HIV-1 or HIV-2 an tibodies or HIV-1 p24 antigen were detected. Blood STRUCTURE OF RIGHT UPPER LIMB / Unknown Venipuncture / Unknown 05/18/2024 4:55 PM CDT 05/18/2024 4:55 PM CDT [facility] - 05/18/2024 6:30 PM CDT All positive rapid HIV 1/2 Ag/Ab samples need to be confirmed by a second HIV 1/2 Ag/Ab Combination test. Julian Morataya MD LAB - BLOOD [facility]U COLLINS Performing Organization Address City/[facility]/ZIP Co de Phone Number LABORATORY [facility] [place] [facility] [address] [facility], [address] [id number] [place] [address] * Hepatitis C RNA, Quantitative by PCR (05/18/2024 4:55 PM CDT) [facility] Hepatitis C RNA IU/mL Not Detected Not [...] - BLOOD CLAU COLLINS [facility] IDD LAB[facility]AT[facility] Inf. Diseases Diag. Lab [address] [facility], [address] [place] [phone] * Hepatitis B surface antigen (05/18/2024 4:55 PM CDT) Hepatitis B Surface Antigen Nonreactive Nonreactive 05/18/2024 6:30 PM CDT [facility] Blood STRUCTURE OF RIGHT UPPER LIMB / Unknown Venipuncture / Unknown 05/18/2024 4:55 PM CDT 05/18/2024 4:55 PM CDT Julian Morataya MD LAB - BLOOD CLAU COLLINS [facility] [place] [facility] [address] [facility], [address] [place] [phone] from Last 3 Months Care Teams Customer Sales Consultant Relationship Specialty Start Date End Date Catia Fontana PA-C [facility] [address] [place] [address] PCP - General Physician Table Cover Folder 02/15/21 Vanessa Mathew RN Specialty Balancing Machine Operator Neurology 02/22/21 Emily Ross, JIM Specialty Balancing Machine Operator 02/28/21 Ari Gee MA Brewmaster Neurology 03/20/21 Josefa Mcneil PA-C [email or web address] SURGERY [address] [address] Physician Table Cover Folder Pediatric Critical Care Medicine 03/23/21 Chaya Nicholson PA-C [address] [place] [address] [address] [place], [place] 452895 Physician Table Cover Folder Anesthesiology 06/28/21 Angelika Coronel MD [address] [place] [address] 333605 Neurology 08/06/22 Angelika Coronel MD [address] [place], [place] 8939[address] Assigned Neuroscience Provider 09/07/22 Aracelis Borja, PhD LP [address] [place] [address] Assigned Behavioral Health Provider 02/01/23
--- OUTSIDE RECORDS SUMMARY | 2024-07-15 16:37 | XMS_ITS | Encounter Summary ---
Author Organization [facility] Address [address] [facility] [place] [address] Care Team Providers Care Systems Integration Advisor Name Role Phone Catia Fontana Jane PA-C Primary Care Provider Vanessa Mathew RN Unavailable [phone] Emily Ross RN Unavailable Unavailable Ari Gee MA Unavailable Unavailable Josefa Mcneil PA-C Unavailable Chaya Nicholson PA-C Unavailable [phone] Angelika Coronel MD Unavailable [phone] Angelika Coronel MD Unavailable [phone] Aracelis Borja PhD Unavailable + [phone] Reason for Visit * Reason Onset Date Comments Appointment 06/09/2024 Neurotoxin Encounter Details Date Type Department Care Team (Late st Contact Info) Description 06/09/[address] [facility] [address] [address] Duy Wilson MD [address] [place] [address] [address] [place], [place] [address] Appointment (Neurotoxin) Social History Tobacco Use Types Packs/Day Years [...] encounter Miscellaneous Notes * Telephone Encounter - Elizabeth Mg - 06/09/2024 3:41 PM CDT [facility] Call Center Phone Message May a detailed message be left on voicemail: yes Reason for Call: Appointment Intake Referring Provider Name: Duy iWlson MD Diagnosis and/or Symptoms: Neurotoxin reschedule from 08/16. Medical Doctor unable to find open spot to schedule for Pt at either locations or providers stated in TE until October. Please contact Pt for scheduling. Pt can be reached at: [phone] Action Taken: Other: Neurology Travel Screening: Not Applicable Date of Service: documented in this encounter Plan of Treatment Upcoming Encounters Date Type Department Care Team (Late st Contact Info) Description 08/19/2024 12:00 PM BAKER BISCUIT Office Visit [facility] [address] [place] [address] Marisel Garcia DO [address] [place] [address] 813235 documented as of this encounter Visit Diagnoses Not on filedocumented in this encounter Additional Health Concerns Assessment Noted Time PHQ-9 Depression Total Score: 3 02/22/20 11:51 AM CDT documented as of this encounter Care Teams Systems Integration Advisor Relationship Specialty Start Date End Date Catia Fontana PA-C [facility] [address] [place] [address] PCP - General Physician Reimbursement Manager 02/15/21 Vanessa Mathew RN Specialty Direct Mail Manager Neurology 02/22/21 Emily Ross, JIM Specialty Direct Mail Manager 02/28/21 Ari Gee MA Utility Bill Collection Clerk Neurology 03/20/21 Josefa Mcneil PA-C [facility], SURGERY [address] [address] Physician Reimbursement Manager Pediatric Critical Care Medicine 03/23/21 Chaya Nicholson PA-C [address] [place] [address] Physician Reimbursement Manager Anesthesiology 06/28/21 Angelika Coronel MD [address] [place] [address] Neurology 08/06/22 Angelika Coronel MD [address] [place] [address] Assigned Neuroscience Provider 09/07/22 Aracelis Borja, PhD LP [address] [place] [address] Assigned Behavioral Health Provider 02/01/23 documented as of this encounter
--- OUTSIDE RECORDS SUMMARY | 2024-07-15 16:37 | XMS_ITS | Encounter Summary ---
Author Organization [facility] Address [address] [place] [address] Care Team Providers Care Taste Tester Name Role Phone Catia Fontana Jane PA-C Primary Care Provider Vanessa Mathew RN Unavailable [phone] Emily Ross RN Unavailable Unavailable Ari Gee MA Unavailable Unavailable Josefa Mcneil PA-C Unavailable [phone] Chaya Nicholson PA-C Unavailable [phone] Angelika Coronel MD Unavailable [phone] Angelika Coronel MD Unavailable [phone] Aracelis Borja PhD LP Unavailable [phone] Encounter Details Date Type Department Care Team (Latest Contact Info) Description 05/18/2024 Travel Social History Tobacco Use Types Packs/Day Years [...] st Contact Info) Description 08/19/2024 12:00 PM HEAD GAUGE UNIT OPERATOR Office Visit [facility] Neurology Clinic [address] [phone] Marisel Garcia DO [address] [place] [address] 146485 documented as of this encounter Visit Diagnoses Not on filedocumented in this encounter Additional Health Concerns Assessment Noted Time PHQ-9 Depression Total Score: 3 02/22/20 21 11:51 AM CDT documented as of this encounter Care Teams Taste Tester Relationship Specialty Start Date End Date Catia Fontana PA-C [facility] [address] [place] [address] PCP - General Physician Washer Hand 02/15/21 Vanessa Mathew RN Specialty Wallpaper Hanger Neurology 02/22/21 Emily Ross, JIM Specialty Wallpaper Hanger 02/28/21 Ari Gee MA Product Safety Test Engineer Neurology 03/20/21 Josefa Mcneil PA-C [facility], SURGERY [address] [address] Physician Washer Hand Pediatric Critical Care Medicine 03/23/21 Chaya Nicholson PA-C [address] [place] [address] Physician Washer Hand Anesthesiology 06/28/21 Angelika Coronel MD [address] [place] [address] 204125 Neurology 08/06/22 Angelika Coronel MD [address] [place] [address] 880795 Assigned Neuroscience Provider 09/07/22 Aracelis Borja, PhD LP [address] [place] [address] 955155 Assigned Behavioral Health Provider 02/01/23 documented as of this encounter
--- OUTSIDE RECORDS SUMMARY | 2024-07-15 16:38 | XMS_ITS | Encounter Summary ---
Author Organization [facility] Address [address] [place] [address] Care Team Providers Care Tire Tester Name Role Phone Catia Fontana Jane PA-C Primary Care Provider Columba Elizalde MD Unavailable Vanessa Mathew RN Unavailable [phone] Emily Ross RN Unavailable Unavailable Zoya Morales APRN HEART NURSE Unavailable + Ari Gee MA Unavailable Unavailable Josefa Mcneil-C Unavailable [phone] Josefa Mcneil-C Unavailable Chaya NicholsonC Unavailable Toni Blankenship MD Unavailable [phone] Chaya Nicholson-C Unavailable Aracelis Borja PhD LP Unavailable Josefa Mcneil PA-C Unavailable Angelika Coronel MD Unavailable [phone] Angelika Coronel MD Unavailable [phone] Angelika Coronel MD Unavailable [phone] Aracelis Borja PhD LP Unavailable [phone] Encounter Details Date Type Department Care Team (Late Contact Info) Description 08/13/2021 MyC Medical Advice [facility] Neurosurgery [address] [address] Toni Blankenship MD [address] [place] [address] [phone] Social History Tobacco Use Types Packs/Day Years [...] PHQ-2 Answer Date Recorded PHQ-2 Score 0 05/21/2021 Sex and Gender Information Value Date Recorded Sex Assigned at Male 06/21/2021 8:10 AM CDT Gender Identity Male 06/21/2021 8:10 AM CDT Sexual Orientation Not on file documented as of this encounter Plan of Treatment Upcoming Encounters Date Type Department Care Team (Late Contact Info) Description 08/19/2024 12:00 PM AUCTION ASSISTANT Office Visit [facility] Neurology [address] [address] Marisel Garcia DO [address] [place] [address] documented as of this encounter Visit Diagnoses Not on filedocumented in this encounter Additional Health Concerns Assessment Noted Time PHQ-9 Depression Total Score: 3 02/22/20 21 11:51 AM CDT documented as of this encounter Care Teams Tire Tester Relationship Specialty Start Date End Date Catia Fontana PA-C [facility] [address] [address] PCP - General Physician Night Warehouse Manager 02/15/21 Columba Elizalde MD [facility] [address] [place] [address] Neurology 02/15/21 08/05/22 Vanessa Mathew RN Specialty Public Affairs Director Neurology 02/22/21 Emily Ross, JIM Specialty Public Affairs Director 02/28/21 Zoya Morales APRN HEART NURSE [address] [place] [address] 179635 Assigned PCP 01/30/21 11/15/22 Ari Gee MA Showroom Sales Consultant Neurology 03/20/21 Josefa Mcneil PA-C [facility], SURGERY [address] [place] [address] [phone] Physician Night Warehouse Manager Pediatric Critical Care Medicine 03/23/21 Josefa Mcneil PA-C [facility] SURGERY [address] [place] [address] Assigned Heart and Vascular Provider 04/20/21 09/08/21 Chaya Nicholson PA-C [address] [place] [address] 786915 Physician Night Warehouse Manager Anesthesiology 06/28/21 Toni Blankenship MD [address] [place] [address] 342145 Assigned Neuroscience Provider 07/29/21 09/06/22 Chaya Nicholson PA-C [address] [place] [address] Assigned Surgical Provider 07/15/21 07/11/23 Aracelis Borja, PhD LP [address] [place] [address] Assigned Behavioral Health Provider 08/26/21 09/13/22 Josefa Mcneil PA-C [facility], SURGERY [address] [place] [address] Assigned Gastroenterology Provider 09/09/21 12/08/21 Angelika Coronel MD [address] [place] [address] Fellow Neurology 03/06/22 08/05/22 Angelika Coronel MD [address] [place] [address] MD Neurology 08/06/22 Angelika Coronel MD [address] [place] [address] Assigned Neuroscience Provider 09/07/22 Aracelis Borja, PhD LP [address] [place] [address] Assigned Behavioral Health Provider 02/01/23 documented as of this encounter
--- OUTSIDE RECORDS SUMMARY | 2024-07-15 16:38 | XMS_ITS | Encounter Summary ---
Author Organization [facility] Address [address] [place] [address] Care Team Providers Care Pneumatic Tube Fitter Name Role Phone Carriesilverio Namrata PA-C Primary Care Provider Columba Elizalde MD Unavailable Vanessa Mathew RN Unavailable [phone] Emily Ross RN Unavailable Unavailable Zoya Morales DRUM CLEANER ICER HAND Unavailable + Ari Gee MA Unavailable Unavailable Josefa Mcneil PA-C Unavailable Chaya NicholsonC Unavailable + [phone] Toni Blankenship MD Unavailable [phone] Chaya NicholsonC Unavailable + [phone] Aracelis Borja PhD LP Unavailable Josefa Mcneil PA-C Unavailable [phone] Angelika Coronel MD Unavailable [phone] Angelika Coronel MD Unavailable [phone] Angelika Coronel MD Unavailable [phone] Aracelis Borja PhD LP Unavailable [phone] Encounter Details Date Type Department Care Team (Late st Contact Info) Description 11/12/2021 MyC Medical Advice [facility] Neurology [address] [phone] Ari Gee MA Social History Tobacco Use [...] (Late Contact Info) Description 08/19/2024 12:00 PM SPIRITUAL ADVISOR Office Visit [address] [phone] Marisel Garcia DO [address] [place] [address] documented as of this encounter Visit Diagnoses Not on filedocumented in this encounter Additional Health Concerns Assessment Noted Time PHQ-9 Depression Total Score: 3 02/22/20 21 11:51 AM CDT documented as of this encounter Care Teams Pneumatic Tube Fitter Relationship Specialty Start Date End Date Catia Fontana PA-C [facility] [address] [place] [address] PCP - General Physician Canal Equipment Maintenance Supervisor 02/15/21 Columba Elizalde MD [facility] [address] [place] [address] Neurology 02/15/21 08/05/22 Vanessa Mathew, RN Specialty Major League Baseball Player Neurology 02/22/21 Emily Ross, RN Specialty Major League Baseball Player 02/28/21 Zoya Morales APRN ICER HAND [address] [place] [address] 485605 Assigned PCP 01/30/21 11/15/22 Ari Gee MA Blast Setter Neurology 03/20/21 Josefa Mcneil PA-C [facility], SURGERY [address] [phone] Physician Canal Equipment Maintenance Supervisor Pediatric Critical Care Medicine 03/23/21 Chaya Nicholson PA-C [address] [place] [address] 363215 Physician Canal Equipment Maintenance Supervisor Anesthesiology 06/28/21 Toni Blankenship MD [address] [place] [address] 174035 Assigned Neuroscience Provider 07/29/21 09/06/22 Chaya Nicholson PA-C [address] [place] [address] 232225 Assigned Surgical Provider 07/15/21 07/11/23 Aracelis Borja, PhD LP [address] [place] [address] [phone] Assigned Behavioral Health Provider 08/26/21 09/13/22 Josefa Mcneil PA-C [facility], SURGERY [address] [place] [address] Assigned Gastroenterology Provider 09/09/21 12/08/21 Angelika Coronel MD [address] [place] [address] Fellow Neurology 03/06/22 08/05/22 Angelika Coronel MD [address] [place] [address] MD Neurology 08/06/22 Angelika Coronel MD [address] [place] [address] Assigned Neuroscience Provider 09/07/22 Aracelis Borja, PhD LP [address] [place] [address] Assigned Behavioral Health Provider 02/01/23 documented as of this encounter
--- OUTSIDE RECORDS SUMMARY | 2024-07-15 16:38 | XMS_ITS | Encounter Summary ---
Author Organization [facility] Address [address] [place] [address] 11339 Care Team Providers Care Agile Scrum Master Name Role Phone Catia Fontana Jane PA-C Primary Care Provider Columba Elizalde MD Unavailable Vanessa Mathew RN Unavailable [phone] Emily Ross RN Unavailable Unavailable Zoya Morales APRN INTERNAL AFFAIRS COMMANDER Unavailable + Ari Gee MA Unavailable Unavailable Josefa Mcneil-C Unavailable Josefa Mcneil-C Unavailable Chaya NicholsonC Unavailable Toni Blankenship MD Unavailable [phone] Chaya Nicholson-C Unavailable Aracelis Borja PhD LP Unavailable Josefa Mcneil PA-C Unavailable Angelika Coronel MD Unavailable [phone] Angelika Coronel MD Unavailable [phone] Angelika Coronel MD Unavailable [phone] Aracelis Borja PhD LP Unavailable [phone] Encounter Details Date Type Department Care Team (Late st Contact Info) Description 07/31/2021 MyC Medical Advice [facility] Neurology Clinic [address] [address] Columba Elizalde MD [facility] [address] [place] [address] Social History Tobacco Use Types Packs/Day Years [...] Exposure Response Date Recorded In the last month, have you been in contact with someone who was confirmed or suspected to have Coronavirus / COVID-19? No / Unsure 07/13/2021 12:56 PM CDT documented as of this encounter Plan of Treatment Upcoming Encounters Date Type Department Care Team (Late st Contact Info) Description 08/19/2024 12:00 PM HEALTHCARE CONSULTING MANAGER Office Visit [facility] Neurology Clinic [address] [address] Marisel Garcia DO [address] [place] [address] [id number] documented as of this encounter Visit Diagnoses Not on filedocumented in this encounter Additional Health Concerns Assessment Noted Time PHQ-9 Depression Total Score: 3 02/22/20 21 11:51 AM CDT documented as of this encounter Care Teams Agile Scrum Master Relationship Specialty Start Date End Date Catia Fontana PA-C [facility] [address] [place] [address] PCP - General Physician Fender Mechanic 02/15/21 Columba Elizalde MD [facility] [address] [place] [address]349 Neurology 02/15/21 08/05/22 Vanessa Mathew RN Specialty Geophysical Prospecting Permit Agent Neurology 02/22/21 Emily Ross, JIM Specialty Geophysical Prospecting Permit Agent 02/28/21 Zoya Morales APRN INTERNAL AFFAIRS COMMANDER [address] [place] [address] 59132 Assigned PCP 01/30/21 11/15/22 Ari Gee MA Quality Control Tech Neurology 03/20/21 Josefa Mcneil PA-C [address] [address] Physician Fender Mechanic Pediatric Critical Care Medicine 03/23/21 Josefa Mcneil PA-C [facility] SURGERY [address] [place] [address] 94655 Assigned Heart and Vascular Provider 04/20/21 09/08/21 Chaya Nicholson PA-C [address] [place] [address]71 Physician Fender Mechanic Anesthesiology 06/28/21 Toni Blankenship MD [address] [place] [address] 08367 Assigned Neuroscience Provider 07/29/21 09/06/22 Chaya Nicholson PA-C [address] [place] [address] 16269 Assigned Surgical Provider 07/15/21 07/11/23 Aracelis Borja, PhD LP [address] [place] [address] 69508 Assigned Behavioral Health Provider 08/26/21 09/13/22 Josefa Mcneil PA-C [facility], SURGERY [address] [place] [address]7520 Assigned Gastroenterology Provider 09/09/21 12/08/21 Angelika Coronel MD [address] [place] [address] 61189 Fellow Neurology 03/06/22 08/05/22 Angelika Coronel MD [address] [place] [address] 25535 Neurology 08/06/22 Angelika Coronel MD [address] [place] [address] 64183 Assigned Neuroscience Provider 09/07/22 Aracelis Borja, PhD LP [address] [place] [address]30 Assigned Behavioral Health Provider 02/01/23 documented as of this encounter
--- OUTSIDE RECORDS SUMMARY | 2024-07-15 16:38 | XMS_ITS | Encounter Summary ---
Author Organization [facility] Address [address] [place] [address] Care Team Providers Care Regulator Tester Name Role Phone Catia Fontana PA-C Primary Care Provider Columba Elizalde MD Unavailable + [phone] Vanessa Mathew RN Unavailable [phone] Emily Ross RN Unavailable Unavailable Zoya Morales CONCRETE PUDDLER RADIOTELEPHONE TECHNICAL OPERATOR Unavailable + rAi Gee MA Unavailable Unavailable Josefa Mcneil PA-C Unavailable +[phone] Chaya Nicholson PA-C Unavailable + [phone] Toni Blankenship MD Unavailable +[phone] Chaya Nicholson PA-C Unavailable + [phone] Aracelis Borja PhD LP Unavailable +[phone] Angelika Coronel MD Unavailable [phone] Angelika Coronel MD Unavailable [phone] Angelika Coronel MD Unavailable [phone] Aracelis Borja PhD LP Unavailable [phone] Encounter Details Date Type Department Care Team (Late st Contact Info) Description 02/27/2022 [facility] [address] [place] [phone] Toni Blankenship MD [address] [place] [address] Social History Tobacco Use Types Packs/Day Years [...] suspected to have Coronavirus/COVID-19? No / Unsure 02/19/2022 8:40 AM CDT documented as of this encounter Miscellaneous Notes * Telephone Encounter - Teetee Rubin LPN - 02/27/2022 2:15 PM CDTSummary: Dr. Blankenship Attn: ZEINA Lee Return to work note Zonia Rubin LPN Neurosurgery * Telephone Encounter - Teetee Rubin LPN - 02/27/2022 1:54 PM CDTSummary: Dr. Blankenship Attn: ZEINA Lee for Dr. Blankenship On going [employer] message. Zonia Rubin LPN Neurosurgery * Telephone Encounter - Teetee Rubin LPN - 02/27/2022 10:42 AM CDTSummary: Dr. Blankenship Attn: Elle Marie, JIMCC for Dr. Blankenship Patient requesting return to work note. Zonia Rubin LPN Neurosurgery documented in this encounter Plan of Treatment Upcoming Encounters Date Type Department Care Team (Late st Contact Info) Description 08/19/2024 12:00 PM TUNNEL MINER Office Visit [facility] Neurology Clinic [address] [place] [phone] Marisel Garcia DO [address] [place] [address] 337145 documented as of this encounter Visit Diagnoses Not on filedocumented in this encounter Additional Health Concerns Assessment Noted Time PHQ-9 Depression Total Score: 3 02/22/20 21 11:51 AM CDT documented as of this encounter Care Teams Regulator Tester Relationship Specialty Start Date End Date Catia Fontana PA-C [address] [address] PCP - General Physician Terrazzo Helper 02/15/21 Columba Elizalde MD [address] [address] Neurology 02/15/21 08/05/22 Vanessa Mathew RN Specialty Dip Stand Loader Neurology 02/22/21 Emily Ross, JIM Specialty Dip Stand Loader 02/28/21 Zoya Morales, CONCRETE PUDDLER RADIOTELEPHONE TECHNICAL OPERATOR [address] [place] [address] 33832 Assigned PCP 01/30/21 11/15/22 Ari Gee MA Head Sawyer Neurology 03/20/21 Josefa Mcneil PA-C [facility], SURGERY [address] [address] Physician Terrazzo Helper Pediatric Critical Care Medicine 03/23/21 Chaya Nicholson PA-C [address] [place] [address] Physician Terrazzo Helper Anesthesiology 06/28/21 Toni Blankenship MD [address] [place] [address] Assigned Neuroscience Provider 07/29/21 09/06/22 Chaya Nicholson PA-C [address] [place] [address] Assigned Surgical Provider 07/15/21 07/11/23 Aracelis Borja, PhD LP [address] [place] [address] Assigned Behavioral Health Provider 08/26/21 09/13/22 Angelika Coronel MD [address] [place] [address] 73247 Fellow Neurology 03/06/22 08/05/22 Angelika Coronel MD [address] [place] [address] 47435 Neurology 08/06/22 Angelika Coronel MD [address] [place], [place] 932825 Assigned Neuroscience Provider 09/07/22 Aracelis Borja, PhD LP [address] [place] [address] [id number] Assigned Behavioral Health Provider 02/01/23 documented as of this encounter
--- OUTSIDE RECORDS SUMMARY | 2024-07-15 16:38 | XMS_ITS | Encounter Summary ---
Author Organization [facility] Address [address] [place] [address] 16087 Care Team Providers Care Lithograph Designer Name Role Phone Catia Fontana PA-C Primary Care Provider Columba Elizalde MD Unavailable + [phone] Vanessa Mathew RN Unavailable [phone] Emily Ross RN Unavailable Unavailable Zoya Morales MILL MACHINIST SPOOL WORKER Unavailable + Ari Gee MA Unavailable Unavailable Josefa Mcneil PA-C Unavailable +[phone] Chaya Nicholson PA-C Unavailable + [phone] Toni Blankenship MD Unavailable +[phone] Chaya Nicholson PA-C Unavailable + [phone] Aracelis Borja PhD LP Unavailable +[phone] Angelika Coronel MD Unavailable [phone] Angelika Coronel MD Unavailable [phone] Angelika Coronel MD Unavailable [phone] Aracelis Borja PhD LP Unavailable +[phone] Encounter Details Date Type Department Care Team (Late st Contact Info) Description 01/04/2022 [facility] [address] 3rd [place] [phone] Elle Marie, RN Social History Tobacco Use Types Packs/Day Years [...] st Contact Info) Description 08/19/2024 12:00 PM MANAGER ACCOUNT MANAGEMENT Office Visit [facility] Neurology [address] [address] Marisel Garcia DO [address] [place] [address] documented as of this encounter Visit Diagnoses Not on filedocumented in this encounter Additional Health Concerns Assessment Noted Time PHQ-9 Depression Total Score: 3 02/22/20 21 11:51 AM CDT documented as of this encounter Care Teams Lithograph Designer Relationship Specialty Start Date End Date Catia Fontana PA-C [facility] [address] [place] [address] PCP - General Physician Receiving Weigher 02/15/21 Columba Elizalde MD [facility] [address] [place] [address] Neurology 02/15/21 08/05/22 Vanessa Mathew, RN Specialty Knifeman Neurology 02/22/21 Emily Ross, RN Specialty Knifeman 02/28/21 Zoya Morales APRN SPOOL WORKER [address] [place] [address] 51663 Assigned PCP 01/30/21 11/15/22 Ari Gee MA Nursing Officer Neurology 03/20/21 Josefa Mcneil PA-C [facility]GERY [address] [address] Physician Receiving Weigher Pediatric Critical Care Medicine 03/23/21 Chaya Nicholson PA-C [address] [place] [address] 930995 Physician Receiving Weigher Anesthesiology 06/28/21 Toni Blankenship MD [address] [place] [address] 690515 Assigned Neuroscience Provider 07/29/21 09/06/22 Chaya Nicholson PA-C [address] [place] [address] 740945 Assigned Surgical Provider 07/15/21 07/11/23 Aracelis Borja, PhD LP [address] [place] [address] 695425 Assigned Behavioral Health Provider 08/26/21 09/13/22 Angelika Coronel MD [address] [place] [address] 086955 Fellow Neurology 03/06/22 08/05/22 Angelika Coronel MD [address] [place] [address]81 Neurology 08/06/22 Angelika Coronel MD [address] [place] [address] 355155 Assigned Neuroscience Provider 09/07/22 Aracelis Borja, PhD LP [address] [place] [address] 585595 Assigned Behavioral Health Provider 02/01/23 documented as of this encounter
--- OUTSIDE RECORDS SUMMARY | 2024-07-15 16:38 | XMS_ITS | Encounter Summary ---
Author Organization [facility] Address [address] [place] [address] Care Team Providers Care Engagement Specialist Name Role Phone Carriesilverio Namrata PA-C Primary Care Provider Columba Elizalde MD Unavailable Vanessa Mathew RN Unavailable [phone] Emily Ross RN Unavailable Unavailable Zoya Morales APPLIED MARINE PHYSICS PROFESSOR BOILER FIREMAN Unavailable + Ari Gee MA Unavailable Unavailable Josefa Mcneil PA-C Unavailable Chaya NicholsonC Unavailable + [phone] Toni Blankenship MD Unavailable [phone] Chaya NicholsonC Unavailable + [phone] Aracelis Borja PhD LP Unavailable Josefa Mcneil PA-C Unavailable [phone] Angelika Coronel MD Unavailable [phone] Angelika Coronel MD Unavailable [phone] Angelika Coronel MD Unavailable Aracelis Borja PhD LP Unavailable +[phone] Encounter Details Date Type Department Care Team (Late st Contact Info) Description 11/06/2021 MyC Medical Advice [facility] Neurology [address] [phone] Ari Gee MA Social History Tobacco Use [...] (Late Contact Info) Description 08/19/2024 12:00 PM CHANNEL REBUILDER Office Visit [address] [phone] Marisel Garcia DO [address] [place] [address] documented as of this encounter Visit Diagnoses Not on filedocumented in this encounter Additional Health Concerns Assessment Noted Time PHQ-9 Depression Total Score: 3 02/22/20 21 11:51 AM CDT documented as of this encounter Care Teams Engagement Specialist Relationship Specialty Start Date End Date Catia Fontana PA-C [facility] [address] [place] [address] PCP - General Physician Manager Speech 02/15/21 Columba Elizalde MD [facility] [address] [place] [address] Neurology 02/15/21 08/05/22 Vanessa Mathew, RN Specialty Survey Associate Neurology 02/22/21 Emily Ross, RN Specialty Survey Associate 02/28/21 Zoya Morales APRN BOILER FIREMAN [address] [place] [address] 257625 Assigned PCP 01/30/21 11/15/22 Ari Gee MA Animal Behaviorist Neurology 03/20/21 Josefa Mcneil PA-C [facility], SURGERY [address] 387[address] Physician Manager Speech Pediatric Critical Care Medicine 03/23/21 Chaya Nicholson PA-C [address] [place] [address] 699465 Physician Manager Speech Anesthesiology 06/28/21 Toni Blankenship MD [address] [place] [address] 877325 Assigned Neuroscience Provider 07/29/21 09/06/22 Chaya Nicholson PA-C [address] [place] [address] 268445 Assigned Surgical Provider 07/15/21 07/11/23 Aracelis Borja, PhD LP [address] [place] [address] 397575 Assigned Behavioral Health Provider 08/26/21 09/13/22 Josefa Mcneil PA-C [facility], SURGERY [address] [place] [address] Assigned Gastroenterology Provider 09/09/21 12/08/21 Angelika Coronel MD [address] [place] [address] Fellow Neurology 03/06/22 08/05/22 Angelika Coronel MD [address] [place] [address] MD Neurology 08/06/22 Angelika Coronel MD [address] [place] [address]99[address] Assigned Neuroscience Provider 09/07/22 Aracelis Borja, PhD LP [address] [place] [address]109 Assigned Behavioral Health Provider 02/01/23 documented as of this encounter
--- OUTSIDE RECORDS SUMMARY | 2024-07-15 16:38 | XMS_ITS | Encounter Summary ---
Author Organization [place] Address [address] [place] [address] Care Team Providers Care Ice Cream Freezer Name Role Phone Catia Fontana PA-C Primary Care Provider Columba Elizalde MD Unavailable + [phone] Vanessa Mathew RN Unavailable [phone] Emily Ross RN Unavailable Unavailable Zoya Morales LINUX ADMINISTRATOR TENTERER Unavailable + Ari Gee MA Unavailable Unavailable Josefa Mcneil PA-C Unavailable Chaya Nicholson PA-C Unavailable + [phone] Toni Blankenship MD Unavailable +[phone] Chaya Nicholson PA-C Unavailable + [phone] Aracelis Borja PhD LP Unavailable +[phone] Angelika Coronel MD Unavailable [phone] Angelika Coronel MD Unavailable [phone] Angelika Coronel MD Unavailable [phone] Aracelis Borja PhD LP Unavailable +[phone] Encounter Details Date Type Department Care Team (Late st Contact Info) Description 01/09/2022 [facility] Preoperative Assessment [address] [place] [address] Elizabeth Martinez RN Social History Tobacco Use Types Packs/Day [...] have Coronavirus / COVID-19? No / Unsure 01/11/2022 11:09 AM CDT documented as of this encounter Plan of Treatment Upcoming Encounters Date Type Department Care Team (Late st Contact Info) Description 08/19/2024 12:00 PM PLUMBING WAREHOUSE HELPER Office Visit [facility] Neurology Clinic [address] [place] [address] Marisel Garcia DO [address] [place] [address] documented as of this encounter Visit Diagnoses Not on filedocumented in this encounter Additional Health Concerns Assessment Noted Time PHQ-9 Depression Total Score: 3 02/22/20 21 11:51 AM CDT documented as of this encounter Care Teams Ice Cream Freezer Relationship Specialty Start Date End Date Catia Fontana PA-C [facility] [address] [place] [address] PCP - General Physician Production Metal Sprayer 02/15/21 Columba Elizalde MD [facility] [address] [place] [address] Neurology 02/15/21 08/05/22 Vanessa Mathew RN Specialty Automation Qtp Tester Neurology 02/22/21 Emily Ross, JIM Specialty Automation Qtp Tester 02/28/21 Zoya Morales APRN TENTERER [address] [place] [address] 419835 Assigned PCP 01/30/21 11/15/22 Ari Gee MA Costume Rental Clerk Neurology 03/20/21 Josefa Mcneil PA-C [facility], SURGERY [address] [place] [address] Physician Production Metal Sprayer Pediatric Critical Care Medicine 03/23/21 Chaya Nicholson PA-C [address] [place] [address] 491945 Physician Production Metal Sprayer Anesthesiology 06/28/21 Toni Blankenship MD [address] [place] [address] 502175 Assigned Neuroscience Provider 07/29/21 09/06/22 Chaya Nicholson PA-C [address] [place] [address] 248245 Assigned Surgical Provider 07/15/21 07/11/23 Aracelis Borja, PhD LP [address] [place] [address] 82137 Assigned Behavioral Health Provider 08/26/21 09/13/22 Angelika Coronel MD [address] [place] [address] Fellow Neurology 03/06/22 08/05/22 Angelika Coronel MD [address] [place] [address] 31714 MD Neurology 08/06/22 Angelika Coronel MD [address] [place] [address] 23347 Assigned Neuroscience Provider 09/07/22 Aracelis Borja, PhD LP [address] [place] [address]122 Assigned Behavioral Health Provider 02/01/23 documented as of this encounter
--- OUTSIDE RECORDS SUMMARY | 2024-07-15 16:38 | XMS_ITS | Encounter Summary ---
Author Organization [place] Address [address] [place] [address] Care Team Providers Care Powered Bridge Specialist Name Role Phone Laron Fontanaah Jane PA-C Primary Care Provider Vanessa Mathew RN Unavailable [phone] Emily Ross RN Unavailable Unavailable Zoya Morales APRN AUTOMATIC MACHINES SUPERVISOR Unavailable + Ari Gee MA Unavailable Unavailable Josefa Mcneil PA-C Unavailable [phone] Chaya Nicholson-C Unavailable Chaya Nicholson PA-C Unavailable Aracelis Borja PhD LP Unavailable +[phone] Angelika Coronel MD Unavailable [phone] Angelika Coronel MD Unavailable [phone] Aracelis Borja PhD LP Unavailable [phone] Encounter Details Date Type Department Care Team (Late st Contact Info) Description 09/11/2022 [facility] Neurology Clinic [address] [place] [address] Angelika Coronel MD [address] [place] [address] Social History Tobacco Use Types Packs/Day [...] Coronavirus/COVID-19? No / Unsure 09/11/2022 11:48 AM BUDGET ASSISTANT documented as of this encounter Plan of Treatment Upcoming Encounters Date Type Department Care Team (Late st Contact Info) Description 08/19/2024 12:00 PM BUDGET ASSISTANT Office Visit [facility] Neurology Clinic [address] [address] Mariesl Garcia DO [address] [place] [address] documented as of this encounter Visit Diagnoses Not on filedocumented in this encounter Additional Health Concerns Assessment Noted Time PHQ-9 Depression Total Score: 3 02/22/20 11:51 AM CDT documented as of this encounter Care Teams Powered Bridge Specialist Relationship Specialty Start Date End Date Catia Fontana PA-C [facility] [address] [place], [place] [address] PCP - General Physician Salon Receptionist 02/15/21 Vanessa Mathew RN Specialty Weight Analyst Neurology 02/22/21 Emily Ross, RN Specialty Weight Analyst 02/28/21 Zoya Morales APRN AUTOMATIC MACHINES SUPERVISOR [address] [place] [address] Assigned PCP 01/30/21 11/15/22 Ari Gee MA Concrete Finisher Apprentice Neurology 03/20/21 Josefa Mcneil PA-C [facility], SURGERY [address] [address] Physician Salon Receptionist Pediatric Critical Care Medicine 03/23/21 Chaya Nicholson PA-C [address] [place] [address] Physician Salon Receptionist Anesthesiology 06/28/21 Chaya Nicholson PA-C [address] [place] [address] Assigned Surgical Provider 07/15/21 07/11/23 Aracelis Borja, PhD LP [address] [place] [address] 97953 Assigned Behavioral Health Provider 08/26/21 09/13/22 Angelika Coronel MD [address] [place] [address] Neurology 08/06/22 Angelika Coronel MD [address] [place] [address] Assigned Neuroscience Provider 09/07/22 Aracelis Borja, PhD LP [address] [place] [address] Assigned Behavioral Health Provider 02/01/23 documented as of this encounter
--- OUTSIDE RECORDS SUMMARY | 2024-07-15 16:38 | XMS_ITS | Encounter Summary ---
Author Organization [facility] Address [address] [place] [address] 87852 Care Team Providers Care Mechanical Engineering Professor Name Role Phone Carriesilverio Namrata PA-C Primary Care Provider Columba Elizalde MD Unavailable Vanessa Mathew RN Unavailable [phone] Emily Ross RN Unavailable Unavailable Zoya Morales CHILD WELFARE COUNSELOR VOCATIONAL AUTO BODY INSTRUCTOR Unavailable + Ari Gee MA Unavailable Unavailable Josefa Mcneil PA-C Unavailable [phone] Chaya NicholsonC Unavailable + [phone] Toni Blankenship MD Unavailable [phone] Chaya NicholsonC Unavailable + [phone] Aracelis Borja PhD LP Unavailable Josefa Mcneil PA-C Unavailable [phone] Angelika Coronel MD Unavailable [phone] Angelika Coronel MD Unavailable [phone] Angelika Coronel MD Unavailable [phone] Aracelis Borja PhD LP Unavailable [phone] Encounter Details Date Type Department Care Team (Late st Contact Info) Description 11/13/2021 MyC Medical Advice [facility] Neuro[facility] [address] [address] Toni Blankenship MD [address] [place] [address] 68406 Social History Tobacco Use Types Packs/Day Years [...] Telephone Encounter - Teetee Rubin LPN - 11/13/2021 3:22 PM LANDSCAPE AND YARDWORK LABORER Attn: Akua Jimenez LPN *Patient requesting paperwork. Zonia Rubin LPN Neurosurgery SCAPE AND YARDWORK LABORER documented in this encounter Plan of Treatment Upcoming Encounters Date Type Department Care Team (Late Contact Info) Description 08/19/2024 12:00 PM LANDSCAPE AND YARDWORK LABORER Office Visit [facility] Neurology [facility] [address] [address] Marisel Garcia DO [address] [place] [address] documented as of this encounter Visit Diagnoses Not on filedocumented in this encounter Additional Health Concerns Assessment Noted Time PHQ-9 Depression Total Score: 3 02/22/20 11:51 AM CDT documented as of this encounter Care Teams Mechanical Engineering Professor Relationship Specialty Start Date End Date Catia Fontana PA-C [facility] [address] [place] [address] PCP - General Physician Rail Director 02/15/21 Columba Elizalde MD [facility] [address] [place] [address] Neurology 02/15/21 08/05/22 Vanessa Mathew RN Specialty Director Nurses' Registry Neurology 02/22/21 Emily Ross, JIM Specialty Director Nurses' Registry 02/28/21 Zoya Morales APRN VOCATIONAL AUTO BODY INSTRUCTOR [address] [place] [address] 087005 Assigned PCP 01/30/21 11/15/22 Ari Gee MA Marketing Secretary Neurology 03/20/21 Josefa Mcneil PA-C [facility], SURGERY [address] [address] Physician Rail Director Pediatric Critical Care Medicine 03/23/21 Chaya Nicholson PA-C [address] [place] [address] 363815 Physician Rail Director Anesthesiology 06/28/21 Toni Blankenship MD [address] [place] [address] [id number] Assigned Neuroscience Provider 07/29/21 09/06/22 Chaya Nicholson PA-C [address] [place] [address]654 Assigned Surgical Provider 07/15/21 07/11/23 Aracelis Borja, PhD LP [address] [place] [address] Assigned Behavioral Health Provider 08/26/21 09/13/22 Josefa Mcneil PA-C [facility], SURGERY [address] [place] [address] Assigned Gastroenterology Provider 09/09/21 12/08/21 Angelika Coronel MD [address] [place] [address] 24833 Fellow Neurology 03/06/22 08/05/22 Angelika Coronel MD [address] [place] [address] 45789 MD Neurology 08/06/22 Angelika Coronel MD [address] [place] [address] 95807 Assigned Neuroscience Provider 09/07/22 Aracelis Borja, PhD LP [address] [place] [address] 56870 Assigned Behavioral Health Provider 02/01/23 documented as of this encounter
--- OUTSIDE RECORDS SUMMARY | 2024-07-15 16:38 | XMS_ITS | Encounter Summary ---
Author Organization [facility] Address [address] [place] [address] 11269 Care Team Providers Care Stereo Equipment Repairer Name Role Phone Catia Fontana Jane PA-C Primary Care Provider Columba Elizalde MD Unavailable Vanessa Mathew RN Unavailable [phone] Emily Ross RN Unavailable Unavailable Zoya Morales COMMERCIAL PARTS PROFESSIONAL DYE RANGE FEEDER Unavailable + Ari Gee MA Unavailable Unavailable Josefa Mcneil PA-C Unavailable Charlie Tavera COMMERCIAL PARTS PROFESSIONAL DYE RANGE FEEDER Unavailable Josefa Mcneil-Georges Unavailable [phone] Chaya Nicholson PA-C Unavailable Toni Blankenship MD Unavailable Chaya Nicholson PA-C Unavailable Aracelis Borja PhD Unavailable [phone] Josefa Mcneil-Georges Unavailable Angleika Coronel MD Unavailable [phone] Angelika Coronel MD Unavailable [phone] Angelika Coronel MD Unavailable [phone] Aracelis Borja PhD LP Unavailable [phone] Encounter Details Date Type Department Care Team (Late Contact Info) Description 06/21/2021 MyC Medical Advice [facility] Preoperative Assessment Center [address] [place] [address] Josefa Mcneil PA-C [facility], SURGERY [address] [place] [address] [address] [place] [address] Social History Tobacco Use Types Packs/Day [...] have Coronavirus / COVID-19? No / Unsure 06/12/2021 2:14 PM CDT documented as of this encounter Plan of Treatment Upcoming Encounters Date Type Department Care Team (Late Contact Info) Description 08/19/2024 12:00 PM TRAFFIC DIVISION COMMANDING OFFICER Office Visit [facility] Neurology Clinic [address] [place] [address] Marisel Garcia DO [address] [place] [address] documented as of this encounter Visit Diagnoses Not on filedocumented in this encounter Additional Health Concerns Assessment Noted Time PHQ-9 Depression Total Score: 3 02/22/20 21 11:51 AM CDT documented as of this encounter Care Teams Stereo Equipment Repairer Relationship Specialty Start Date End Date Catia Fontana PA-C [facility] [address] [place] [address] PCP - General Physician Quality Assurance Coach 02/15/21 Columba Elizalde MD [facility] [address] [place] [address] Neurology 02/15/21 08/05/22 Vanessa Mathew RN Specialty Agriculture Technician Neurology 02/22/21 Emily Ross, JIM Specialty Agriculture Technician 02/28/21 Zoya Morales APRN DYE RANGE FEEDER [address] [place] [address] [phone] Assigned PCP 01/30/21 11/15/22 Ari Gee MA Manager Retention Neurology 03/20/21 Josefa Mcneil PA-C [address] [phone] Physician Quality Assurance Coach Pediatric Critical Care Medicine 03/23/21 Charlie Tavera APRN DYE RANGE FEEDER [address] [place], [place] [address], [place] [id number] Assigned Neuroscience Provider 04/01/21 07/28/21 Josefa Mcneil PA-C [address] [address] Assigned Heart and Vascular Provider 04/20/21 09/08/21 Chaya Nicholson PA-C [address] [place] [address] Physician Quality Assurance Coach Anesthesiology 06/28/21 Toni Blankenship MD [address] [place] [address] Assigned Neuroscience Provider 07/29/21 09/06/22 Chaya Nicholson PA-C [address] [place] [address] 12267 Assigned Surgical Provider 07/15/21 07/11/23 Aracelis Borja, PhD LP [address] [place] [address] Assigned Behavioral Health Provider 08/26/21 09/13/22 Josefa Mcneil PA-C [facility], SURGERY [address] [place] [address] Assigned Gastroenterology Provider 09/09/21 12/08/21 Angelika Coronel MD [address] [place] [address] Fellow Neurology 03/06/22 08/05/22 Angelika Coronel MD [address] [place] [address] Neurology 08/06/22 Angelika Coronel MD [address] [place], [place] 519765 Assigned Neuroscience Provider 09/07/22 Aracelis Borja, PhD LP [address] [place] [address] [phone] Assigned Behavioral Health Provider 02/01/23 documented as of this encounter
--- OUTSIDE RECORDS SUMMARY | 2024-07-15 16:38 | XMS_ITS | Encounter Summary ---
Author Organization [facility] Address [address] [place] [address] 48640 Care Team Providers Care Marine Pipe Welder Name Role Phone Catia Fontana Jane PA-C Primary Care Provider Columba Elizalde MD Unavailable Vanessa Mathew RN Unavailable [phone] Emily Ross RN Unavailable Unavailable Zoya Morales COMMERCIAL INSULATOR LOAN REPRESENTATIVE Unavailable + Ari Gee MA Unavailable Unavailable Josefa Mcneil PA-C Unavailable Charlie Tavera COMMERCIAL INSULATOR LOAN REPRESENTATIVE Unavailable Josefa Mcneil-Georges Unavailable [phone] Chaya Nicholson PA-C Unavailable Toni Blankenship MD Unavailable Chaya Nicholson PA-C Unavailable Aracelis Borja PhD Unavailable [phone] Josefa Mcneil-Georges Unavailable Angelika Coronel MD Unavailable [phone] Angelika Coronel MD Unavailable [phone] Angelika Coronel MD Unavailable [phone] Aracelis Borja PhD LP Unavailable + [phone] Encounter Details Date Type Department Care Team (Late Contact Info) Description 07/05/[address] [facility] Neurology [address] [phone] Mayela Clayton RN Social History Tobacco Use Types Packs/Day [...] have Coronavirus / COVID-19? No / Unsure 07/04/2021 12:37 PM CDT documented as of this encounter Plan of Treatment Upcoming Encounters Date Type Department Care Team (Late Contact Info) Description 08/19/2024 12:00 PM MASS SPEC Office Visit [facility] Neurology [address] [address] Marisel Garcia DO [address] [place] [address] documented as of this encounter Visit Diagnoses Not on filedocumented in this encounter Additional Health Concerns Assessment Noted Time PHQ-9 Depression Total Score: 3 02/22/20 21 11:51 AM CDT documented as of this encounter Care Teams Marine Pipe Welder Relationship Specialty Start Date End Date Catia Fontana PA-C [facility] [address] [place] [address] PCP - General Physician [facility] 02/15/21 Columba Elizalde MD [facility] [address] [place] [address] Neurology 02/15/21 08/05/22 Vanessa Mathew RN Specialty Kiln Car Repairer Neurology 02/22/21 Emily Ross, JIM Specialty Kiln Car Repairer 02/28/21 Zoya Morales APRN LOAN REPRESENTATIVE [address] [place] [address] 488705 Assigned PCP 01/30/21 11/15/22 Ari Gee MA Or First Assist Registered Nurse Neurology 03/20/21 Josefa Mcneil PA-C [address] [address] Physician [facility] Pediatric Critical Care Medicine 03/23/21 Charlie Tavera APRN LOAN REPRESENTATIVE [address] [place], [place] [address] [address] Assigned Neuroscience Provider 04/01/21 07/28/21 Josefa Mcneil PA-C [address] [address] Assigned Heart and Vascular Provider 04/20/21 09/08/21 Chaya Nicholson PA-C [address] [place] [address] Physician [facility] Anesthesiology 06/28/21 Toni Blankenship MD [address] [place] [address] Assigned Neuroscience Provider 07/29/21 09/06/22 Chaya Nicholson PA-C [address] [place] [address] Assigned Surgical Provider 07/15/21 07/11/23 Aracelis Borja, PhD LP [address] [place] [address]39 Assigned Behavioral Health Provider 08/26/21 09/13/22 Josefa Mcneil PA-C [facility], SURGERY [address] [place] [address] Assigned Gastroenterology Provider 09/09/21 12/08/21 Angelkia Coronel MD [address] [place] [address] Fellow Neurology 03/06/22 08/05/22 Angelika Coronel MD [address] [place] [address] Neurology 08/06/22 Angelika Coronel MD [address] [place] [address]682 Assigned Neuroscience Provider 09/07/22 Aracelis Borja, PhD LP [address] [place] [address] Assigned Behavioral Health Provider 02/01/23 documented as of this encounter
--- OUTSIDE RECORDS SUMMARY | 2024-07-15 16:38 | XMS_ITS | Encounter Summary ---
Author Organization [facility] Address [address] [place] [address] Care Team Providers Care Director Of Preclinical Research Name Role Phone Catia Fontana Jane PA-C Primary Care Provider Columba Elizalde MD Unavailable Vanessa Mathew RN Unavailable [phone] Emily Ross RN Unavailable Unavailable Zoya Morales RISK CONTROL SPECIALIST UNDERWRITING TECHNICIAN Unavailable + Ari Gee MA Unavailable Unavailable Josefa Mcneil PA-C Unavailable Charlie Tavera RISK CONTROL SPECIALIST UNDERWRITING TECHNICIAN Unavailable Josefa Mcneil-Georges Unavailable [phone] Chaya Nicholson PA-C Unavailable Toni Blankenship MD Unavailable Chaya Nicholson PA-C Unavailable Aracelis Borja PhD Unavailable [phone] Josefa Mcneil-Georges Unavailable Angelika Coronel MD Unavailable [phone] Angelika Coronel MD Unavailable [phone] Angelika Coronel MD Unavailable [phone] Aracelis Borja PhD LP Unavailable + [phone] Encounter Details Date Type Department Care Team (Late Contact Info) Description 05/04/2021 MyC Medical Advice [facility] Neurology Clinic [address] [address] Vanessa Mathew RN Social History Tobacco Use Types Packs/Day [...] PHQ-2 Answer Date Recorded PHQ-2 Score 0 04/06/2021 Sex and Gender Information Value Date Recorded Sex Assigned at Male 06/21/2021 8:10 AM CDT Gender Identity Male 06/21/2021 8:10 AM CDT Sexual Orientation Not on file COVID-19 Exposure Response Date Recorded In the last month, have you been in contact with someone who was confirmed or suspected to have Coronavirus / COVID-19? No / Unsure 04/17/2021 9:39 AM CDT documented as of this encounter Plan of Treatment Upcoming Encounters Date Type Department Care Team (Late Contact Info) Description 08/19/2024 12:00 PM SOLAR PANEL INSTALLATION SUPERVISOR Office Visit [facility] Neurology [address] [address] Marisel Garcia DO [address] [place] [address] 574505 documented as of this encounter Visit Diagnoses Not on filedocumented in this encounter Additional Health Concerns Assessment Noted Time PHQ-9 Depression Total Score: 3 05/19/20 21 11:51 AM CDT documented as of this encounter Care Teams Director Of Preclinical Research Relationship Specialty Start Date End Date Catia Fontana PA-C [facility] [address] [address] PCP - General Physician Stock Grader 02/15/21 Columba Elizalde MD [facility] [address] [place] [address] Neurology 02/15/21 08/05/22 Vanessa Mathew RN Specialty Data Warehousing Engineer Neurology 02/22/21 Emily Ross, JIM Specialty Data Warehousing Engineer 02/28/21 Zoya Morales APRN UNDERWRITING TECHNICIAN [address] [place] [address] Assigned PCP 01/30/21 11/15/22 Ari Gee MA Assurance Sourcing Manager Neurology 03/20/21 Josefa Mcneil PA-C [address] [address] Physician Stock Grader Pediatric Critical Care Medicine 03/23/21 Charlie Tavera APRN UNDERWRITING TECHNICIAN [address] [place] [address] [id number] [place], [place] [id number] Assigned Neuroscience Provider 04/01/21 07/28/21 Josefa Mcneil PA-C [facility] SURGERY [address] [place] [address] Assigned Heart and Vascular Provider 04/20/21 09/08/21 Chaya Nicholson PA-C [address] [place] [address] Physician Stock Grader Anesthesiology 06/28/21 Toni Blankenship MD [address] [place] [address] Assigned Neuroscience Provider 07/29/21 09/06/22 Chaya Nicholson PA-C [address] [place] [address]491 Assigned Surgical Provider 07/15/21 07/11/23 Aracelis Borja, PhD LP [address] [place] [address] Assigned Behavioral Health Provider 08/26/21 09/13/22 Josefa Mcneil PA-C [facility], SURGERY [address] [place] [address] Assigned Gastroenterology Provider 09/09/21 12/08/21 Angelika Coronel MD [address] [place] [address] 11562 Fellow Neurology 03/06/22 08/05/22 Angelika Coronel MD [address] [place] [address] Neurology 08/06/22 Angelika Coronel MD [address] [place] [address] Assigned Neuroscience Provider 09/07/22 Aracelis Borja, PhD LP [address] [place] [address] Assigned Behavioral Health Provider 02/01/23 documented as of this encounter
--- OUTSIDE RECORDS SUMMARY | 2024-07-15 16:38 | XMS_ITS | Encounter Summary ---
Author Organization [facility] Address [address] [place] [address]287 Care Team Providers Care Physical Therapist Center Manager Name Role Phone Catia Fontana Jane PA-C Primary Care Provider Columba Elizalde MD Unavailable Vanessa Mathew RN Unavailable [phone] Emily Ross RN Unavailable Unavailable Zoya Morales WHITTLING ROOM OPERATOR PATIENT FINANCIAL COUNSELOR Unavailable + Ari Gee MA Unavailable Unavailable Josefa Mcneil PA-C Unavailable [phone] Charlie Tavera WHITTLING ROOM OPERATOR PATIENT FINANCIAL COUNSELOR Unavailable Josefa Mcneil-Georges Unavailable [phone] Chaya Nicholson PA-C Unavailable Toni Blankenship MD Unavailable Chaya Nicholson PA-C Unavailable Aracelis Borja PhD Unavailable [phone] Josefa Mcneil-Georges Unavailable Angelika Coronel MD Unavailable [phone] Angelika Coronel MD Unavailable Angelika Coronel MD Unavailable [phone] Aracelis Borja PhD LP Unavailable + [phone] Encounter Details Date Type Department Care Team (Late Contact Info) Description 05/07/2021 MyC Medical Advice [facility] Neurosurgery Clinic [address] [address] Elle Marie, JIM Social History Tobacco Use Types Packs/Day Years [...] (Late Contact Info) Description 08/19/2024 12:00 PM EVENTS DIRECTOR Office Visit [facility] Neurology Clinic [address] [address] Marisel Garcia DO [address] [place] [address] 931125 documented as of this encounter Visit Diagnoses Not on filedocumented in this encounter Additional Health Concerns Assessment Noted Time PHQ-9 Depression Total Score: 3 05/19/20 21 11:51 AM CDT documented as of this encounter Care Teams Physical Therapist Center Manager Relationship Specialty Start Date End Date Catia Fontana PA-C [facility] [address], [place] [address] PCP - General Physician Supervisor Rose Grading 02/15/21 Columba Elizalde MD [facility] [address] [place] [address] Neurology 02/15/21 08/05/22 Vanessa Mathew RN Specialty Electronic Funds Transfer Coordinator Neurology 02/22/21 Emily Ross, JIM Specialty Electronic Funds Transfer Coordinator 02/28/21 Zoya Morales APRN PATIENT FINANCIAL COUNSELOR [address] [place] [address] Assigned PCP 01/30/21 11/15/22 Ari Gee MA Advertising Representative Neurology 03/20/21 Josefa Mcneil PA-C [address] [address] Physician Supervisor Rose Grading Pediatric Critical Care Medicine 03/23/21 Charlie Tavera APRN PATIENT FINANCIAL COUNSELOR [address] [place] [address] IU0495ET [place], [place] 136495 Assigned Neuroscience Provider 04/01/21 07/28/21 Josefa Mcneil PA-C [facility] SURGERY [address] [place] [address] Assigned Heart and Vascular Provider 04/20/21 09/08/21 Chaya Nicholson PA-C [address] [place] [address] Physician Supervisor Rose Grading Anesthesiology 06/28/21 Toni Blankenship MD [address] [place] [address] Assigned Neuroscience Provider 07/29/21 09/06/22 Chaya Nicholson PA-C [address] [place] [address] Assigned Surgical Provider 07/15/21 07/11/23 Aracelis Borja, PhD LP [address] [place] [address] 00580 Assigned Behavioral Health Provider 08/26/21 09/13/22 Josefa Mcneil PA-C [facility], SURGERY [address] [place] [address] Assigned Gastroenterology Provider 09/09/21 12/08/21 Angelika Coronel MD [address] [place] [address] Fellow Neurology 03/06/22 08/05/22 Angelika Coronel MD [address] [place] [address] Neurology 08/06/22 Angelika Coronel MD [address] [place] [address] Assigned Neuroscience Provider 09/07/22 Aracelis Borja, PhD LP [address] [place] [address] Assigned Behavioral Health Provider 02/01/23 documented as of this encounter
--- OUTSIDE RECORDS SUMMARY | 2024-07-15 16:38 | XMS_ITS | Encounter Summary ---
Author Organization [facility] Address [address] [place] [address] 33336 Care Team Providers Care Tacker Elastic Band Name Role Phone Catia Fontana Jane PA-C Primary Care Provider Columba Elizalde MD Unavailable [phone] Vanessa Mathew RN Unavailable [phone] Emily Ross RN Unavailable Unavailable Zoya Morales COUNCILOR ELECTRONIC IMAGING SYSTEM OPERATOR Unavailable + Columba Elizalde MD Unavailable [phone] Ari Gee MA Unavailable Unavailable Josefa Mcneil PA-C Unavailable Charlie Tavera COUNCILOR ELECTRONIC IMAGING SYSTEM OPERATOR Unavailable [phone] Josefa Mcneil PA-C Unavailable [phone] Chaya Nicholson PA-C Unavailable [phone] Toni Blankenship MD Unavailable [phone] Chaya Nicholson PA-C Unavailable Aracelis Borja PhD Unavailable [phone] Josefa Mcneil PA-C Unavailable Angelika Coronel MD Unavailable [phone] Angelika Coronel MD Unavailable [phone] Angelika Coronel MD Unavailable [phone] Aracelis Borja PhD LP Unavailable [phone] Encounter Details Date Type Department Care Team (Late Contact Info) Description 02/22/2021 MyC Medical Advice [facility] Neurology [address] [address] Ari Gee MA Social History Tobacco [...] PHQ-2 Answer Date Recorded PHQ-2 Score 0 02/20/2021 Sex and Gender Information Value Date Recorded Sex Assigned at Male 06/21/2021 8:10 AM CDT Gender Identity Male 06/21/2021 8:10 AM CDT Sexual Orientation Not on file COVID-19 Exposure Response Date Recorded In the last month, have you been in contact with someone who was confirmed or suspected to have Coronavirus / COVID-19? No / Unsure 02/20/2021 8:48 AM CDT documented as of this encounter Plan of Treatment Upcoming Encounters Date Type Department Care Team (Late Contact Info) Description 08/19/2024 12:00 PM LINOLEUM TILE FLOOR LAYER Office Visit [facility] Neurology [address] [address] Marisel Garcia DO [address] [place] [address] [id number] documented as of this encounter Visit Diagnoses Not on filedocumented in this encounter Additional Health Concerns Assessment Noted Time PHQ-9 Depression Total Score: 3 02/22/20 21 11:51 AM CDT documented as of this encounter Care Teams Tacker Elastic Band Relationship Specialty Start Date End Date Catia Fontana PA-C [facility] [address], [place] [address] PCP - General Physician Foreign Exchange Trader 02/15/21 Columba Elizalde MD [facility] [address] [place] [address] Neurology 02/15/21 08/05/22 Vanessa Mathew RN Specialty Foil Cutter Neurology 02/22/21 Emily Ross, JIM Specialty Foil Cutter 02/28/21 Zoya Morales APRN ELECTRONIC IMAGING SYSTEM OPERATOR [address] [place] [address] [id number] Assigned PCP 01/30/21 11/15/22 Colubma Elizalde MD [facility] [address] [place] [address] Assigned Neuroscience Provider 03/04/21 03/31/21 Ari Gee MA Manufacturing Automation Engineer Neurology 03/20/21 Josefa Mcneil PA-C [facility], SURGERY 909 [facility] 4[address] [place] [address] Physician Foreign Exchange Trader Pediatric Critical Care Medicine 03/23/21 Charlie Tavera APRN ELECTRONIC IMAGING SYSTEM OPERATOR [address] [place] [address] [id number] [place], [place] 034205 Assigned Neuroscience Provider 04/01/21 07/28/21 Josefa Mcneil PA-C [facility] SURGERY [address] [place] [address] Assigned Heart and Vascular Provider 04/20/21 09/08/21 Chaya Nicholson PA-C [address] [place] [address] Physician Foreign Exchange Trader Anesthesiology 06/28/21 Toni Blankenship MD [address] [place] [address] [phone] Assigned Neuroscience Provider 07/29/21 09/06/22 Chaya Nicholson PA-C [address] [place] [address] Assigned Surgical Provider 07/15/21 07/11/23 Aracelis Borja, PhD LP [address] [place] [address] Assigned Behavioral Health Provider 08/26/21 09/13/22 Josefa Mcneil PA-C [facility] SURGERY [address] [place] [address] Assigned Gastroenterology Provider 09/09/21 12/08/21 Angelika Coronel MD [address] [place] [address] 33071 Fellow Neurology 03/06/22 08/05/22 Angelika Coronel MD [address]09 [place] [address] Neurology 08/06/22 Angelika Coronel MD 9 [place] [address] Assigned Neuroscience Provider 09/07/22 Aracelis Borja, PhD LP [address] [place] [address] Assigned Behavioral Health Provider 02/01/23 documented as of this encounter
--- OUTSIDE RECORDS SUMMARY | 2024-07-15 16:38 | XMS_ITS | Encounter Summary ---
Author Organization [facility] Address [address] [place] [address] 16314 Care Team Providers Care Delivery Coordinator Name Role Phone Catia Fontana Jane PA-C Primary Care Provider Columba Elizalde MD Unavailable [phone] Vanessa Mathew RN Unavailable [phone] Emily Ross RN Unavailable Unavailable Zoya Morales STARCHMAKER GUARDIAN FAMILY MEMBER Unavailable + Columba Elizalde MD Unavailable [phone] Ari Gee MA Unavailable Unavailable Josefa Mcneil PA-C Unavailable Charlie Tavera STARCHMAKER GUARDIAN FAMILY MEMBER Unavailable [phone] Josefa Mcneil PA-C Unavailable [phone] Chaya Nicholson PA-C Unavailable [phone] Toni Blankenship MD Unavailable [phone] Chaya Nicholson PA-C Unavailable Aracelis Borja PhD Unavailable [phone] Josefa Mcneil PA-C Unavailable [phone] Angelika Coronel MD Unavailable [phone] Angelika Coronel MD Unavailable [phone] Angelika Coronel MD Unavailable [phone] Aracelis Borja PhD LP Unavailable [phone] Encounter Details Date Type Department Care Team ([facility] Contact Info) Description 02/22/2021 MyC Medical Advice [facility] Preoperative Assessment Center [address] [place] [address] Urvashi Corbett RN Social History Tobacco Use Types Packs/Day [...] (Late Contact Info) Description 08/19/2024 12:00 PM APPLICATION SUPPORT Office Visit [facility] Neurology Clinic [address] [place] [address] Marisel Garcia DO [address] [place] [address] [phone] documented as of this encounter Visit Diagnoses Not on filedocumented in this encounter Additional Health Concerns Assessment Noted Time PHQ-9 Depression Total Score: 3 02/22/20 11:51 AM CDT documented as of this encounter Care Teams Delivery Coordinator Relationship Specialty Start Date End Date Catia Fontana PA-C [facility] [address], [place] [address] PCP - General Physician Spoke Maker 02/15/21 Columba Elizalde MD [facility] [address] [place] [address] Neurology 02/15/21 08/05/22 Vanessa Mathew RN Specialty Distribution A Class Lineman Neurology 02/22/21 Emily Ross, JIM Specialty Distribution A Class Lineman 02/28/21 Zoya Morales APRN GUARDIAN FAMILY MEMBER [address] [place] [address] 850[address] Assigned PCP 01/30/21 11/15/22 Columba Elizalde MD [facility] 1 [place] [address] Assigned Neuroscience Provider 03/04/21 03/31/21 Ari Gee MA Amusement Park Entertainer Neurology 03/20/21 Josefa Mcneil PA-C [facility], SURGERY 909 [facility] [address] [place], [place] 968[address] Physician Spoke Maker Pediatric Critical Care Medicine 03/23/21 Charlie Tavera APRN GUARDIAN FAMILY MEMBER [address] [place] [address] [id number] [place], [place] 239335 Assigned Neuroscience Provider 04/01/21 07/28/21 Josefa Mcneil PA-C [facility], SURGERY [address] [place] [address] Assigned Heart and Vascular Provider 04/20/21 09/08/21 Chaya Nicholson PA-C [address] [place] [address] Physician Spoke Maker Anesthesiology 06/28/21 Toni Blankenship MD [address] [place] [address] Assigned Neuroscience Provider 07/29/21 09/06/22 Chaya Nicholson PA-C [address] [place] [address] Assigned Surgical Provider 07/15/21 07/11/23 Aracelis Borja, PhD LP [address] [place] [address] Assigned Behavioral Health Provider 08/26/21 09/13/22 Josefa Mcneil PA-C [facility] SURGERY [address] [place] [address] Assigned Gastroenterology Provider 09/09/21 12/08/21 Angelika Coronel MD [address] [place] [address] Fellow Neurology 03/06/22 08/05/22 Angelika Coronel MD 909 [place] [address] Neurology 08/06/22 Angelika Coronel MD [address] [place] [address] Assigned Neuroscience Provider 09/07/22 Aracelis Borja, PhD LP [address] [place] [address] Assigned Behavioral Health Provider 02/01/23 documented as of this encounter
--- OUTSIDE RECORDS SUMMARY | 2024-07-15 16:38 | XMS_ITS | Encounter Summary ---
Author Organization [facility] Address [address] [place] [address] 86165 Care Team Providers Care Day Haul Or Farm Charter Bus Driver Name Role Phone Catia Fontana Jane PA-C Primary Care Provider Columba Elizalde MD Unavailable [phone] Vanessa Mathew RN Unavailable [phone] Emily Ross RN Unavailable Unavailable Zoya Morales FINAL ASSEMBLER BRANCH ACCOUNT MANAGER Unavailable + Columba Elizalde MD Unavailable [phone] Ari Gee MA Unavailable Unavailable Josefa Mcneil PA-C Unavailable [phone] Charlie Tavera FINAL ASSEMBLER BRANCH ACCOUNT MANAGER Unavailable [phone] Josefa Mcneil PA-C Unavailable [phone] Chaya Nicholson PA-C Unavailable [phone] Toni Blankenship MD Unavailable Chaya Nicholson PA-C Unavailable Aracelis Borja PhD Unavailable [phone] Josefa Mcneil PA-C Unavailable Angelika Coronel MD Unavailable [phone] Angelika Coronel MD Unavailable [phone] Angelika Coronel MD Unavailable [phone] Aracelis Borja PhD LP Unavailable + [phone] Reason for Visit * Reason Onset Date Comments Erroneous encounter-disregard 02/21/2021 Encounter Details Date Type Department Care Team (Late st Contact Info) Description 02/21/2021 Telephone [facility] Preoperative Assessment Center [address] 5th [place] [address] Zoya Morales APRN [address] [address] Erroneous encounter-disregard Social History Tobacco Use Types Packs/Day Years Used Date Smoking Tobacco: Never Assessed AUDIT-C Answer Date Recorded Q1: How often [...] encounter Miscellaneous Notes * Telephone Encounter - Rosa Acosta - 02/21/2021 3:21 PM CDT error documented in this encounter Plan of Treatment Upcoming Encounters Date Type Department Care Team (Late Contact Info) Description 08/19/2024 12:00 PM FENDER REPAIRER Office Visit [facility] Neurology Clinic [address] 3rd [place] [phone] [place] [address] documented as of this encounter Visit Diagnoses Not on filedocumented in this encounter Additional Health Concerns Assessment Noted Time PHQ-9 Depression Total Score: 3 02/22/20 21 11:51 AM CDT documented as of this encounter Care Teams Day Haul Or Farm Charter Bus Driver Relationship Specialty Start Date End Date Catia Fontana PA-C [address] [address] PCP - General Physician Supervisor Veneer 02/15/21 Columba Elizalde MD [address] [address] Neurology 02/15/21 08/05/22 Vanessa Mathew RN Specialty Engine Wiper Neurology 02/22/21 Emily Ross, JIM Specialty Engine Wiper 02/28/21 Zoya Morales APRN CNP [address] [place] [address] Assigned PCP 01/30/21 11/15/22 Columba Elizalde MD [facility] [address] [place] [address] Assigned Neuroscience Provider 03/04/21 03/31/21 Ari Gee MA Fish Cutting Machine Operator Neurology 03/20/21 Josefa Mcneil PA-C [facility], SURGERY [address] [address] Physician Supervisor Veneer Pediatric Critical Care Medicine 03/23/21 Charlie Tavera APRN CNP [address] [place] [address] [id number] [place] [address] Assigned Neuroscience Provider 04/01/21 07/28/21 Josefa Mcneil PA-C [facility] SURGERY [address] [place] [address] Assigned Heart and Vascular Provider 04/20/21 09/08/21 Chaya Nicholson PA-C [address] [place] [address] Physician Supervisor Veneer Anesthesiology 06/28/21 KrzysztofToni pang MD [address] [place] [address] 928155 Assigned Neuroscience Provider 07/29/21 09/06/22 Chaya Nicholson PA-C [address] [place] [address] Assigned Surgical Provider 07/15/21 07/11/23 Aracelis Borja, PhD LP [address] [place] [address] Assigned Behavioral Health Provider 08/26/21 09/13/22 Josefa Mcneil PA-C [facility], SURGERY [address] [place] [address] Assigned Gastroenterology Provider 09/09/21 12/08/21 Angelika Coronel MD [address] [place] [address] Fellow Neurology 03/06/22 08/05/22 Angelika Coronel MD [address] [place] [address] MD Neurology 08/06/22 Angelika Coronel MD [address] [place] [address] 806265 Assigned Neuroscience Provider 09/07/22 Aracelis Borja, PhD LP [address] [place] [address] 632825 Assigned Behavioral Health Provider 02/01/23 documented as of this encounter
--- OUTSIDE RECORDS SUMMARY | 2024-07-15 16:38 | XMS_ITS | Encounter Summary ---
Author Organization [facility] Address [address] [place] [address]49 Care Team Providers Care Superintendent Drilling Name Role Phone Carriesilverio Namrata PA-C Primary Care Provider Columba Elizalde MD Unavailable Vanessa Mathew RN Unavailable [phone] Emily Ross RN Unavailable Unavailable Zoya Morales TEST AUTOMATION ARCHITECT SHOPPER INSIGHTS MANAGER Unavailable + Ari Gee MA Unavailable Unavailable Josefa Mcneil PA-C Unavailable Chaya NicholsonC Unavailable + [phone] Toni Blankenship MD Unavailable [phone] Chaya NicholsonC Unavailable + [phone] Aracelis Borja PhD LP Unavailable Josefa Mcneil PA-C Unavailable [phone] Angelika Coronel MD Unavailable [phone] Angelika Coronel MD Unavailable [phone] Angelika Coronel MD Unavailable [phone] Aracelis Borja PhD LP Unavailable [phone] Encounter Details Date Type Department Care Team (Late st Contact Info) Description 10/26/2021 MyC Medical Advice [facility] Neurology [address] [phone] Ari Gee MA Social History Tobacco Use [...] (Late Contact Info) Description 08/19/2024 12:00 PM MESH MAN Office Visit [address] [phone] Marisel Garcia DO [address] [place] [address] documented as of this encounter Visit Diagnoses Not on filedocumented in this encounter Additional Health Concerns Assessment Noted Time PHQ-9 Depression Total Score: 3 02/22/20 11:51 AM CDT documented as of this encounter Care Teams Superintendent Drilling Relationship Specialty Start Date End Date Catia Fontana PA-C [facility] [address] [place] [address] PCP - General Physician Sales And Marketing Administrator 02/15/21 Columba Elizalde MD [facility] [address] [place] [address] Neurology 02/15/21 08/05/22 Vanessa Mathew, RN Specialty Counter Checker Neurology 02/22/21 Emily Ross, RN Specialty Counter Checker 02/28/21 Zoya Morales APRN SHOPPER INSIGHTS MANAGER [address] [place] [address] 574465 Assigned PCP 01/30/21 11/15/22 Ari Gee MA Custom Leather Products Maker Neurology 03/20/21 Josefa Mcneil PA-C [facility], SURGERY [address] [address] Physician Sales And Marketing Administrator Pediatric Critical Care Medicine 03/23/21 Chaya Nicholson PA-C [address] [place] [address] 465145 Physician Sales And Marketing Administrator Anesthesiology 06/28/21 Toni Blankenship MD [address] [place] [address] 285435 Assigned Neuroscience Provider 07/29/21 09/06/22 Chaya Nicholson PA-C [address] [place] [address] 177015 Assigned Surgical Provider 07/15/21 07/11/23 Aracelis Borja, PhD LP [address] [place] [address] 851845 Assigned Behavioral Health Provider 08/26/21 09/13/22 Josefa Mcneil PA-C [facility], SURGERY [address] [place] [address] Assigned Gastroenterology Provider 09/09/21 12/08/21 Angelika Coronel MD [address] [place] [address] Fellow Neurology 03/06/22 08/05/22 Angelika Coronel MD [address] [place] [address] MD Neurology 08/06/22 Angelika Coronel MD [address] [place] [address] Assigned Neuroscience Provider 09/07/22 Aracelis Borja, PhD LP [address] [place] [address] Assigned Behavioral Health Provider 02/01/23 documented as of this encounter
--- OUTSIDE RECORDS SUMMARY | 2024-07-15 16:38 | XMS_ITS | Encounter Summary ---
Author Organization [facility] Address [address] [place] [address] 84082 Care Team Providers Care Commanding Officer Homicide Squad Name Role Phone Catia Fontana Jane PA-C Primary Care Provider Columba Elizalde MD Unavailable [phone] Vanessa Mathew RN Unavailable [phone] Emily Ross RN Unavailable Unavailable Zoya Morales RETAIL SERVICE TECHNICIAN PAYROLL ACCOUNTING SPECIALIST Unavailable + Columba Elizalde MD Unavailable [phone] Ari Gee MA Unavailable Unavailable Josefa Mcneil PA-C Unavailable Charlie Tavera RETAIL SERVICE TECHNICIAN PAYROLL ACCOUNTING SPECIALIST Unavailable [phone] Josefa Mcneil PA-C Unavailable [phone] Chaya Nicholson PA-C Unavailable [phone] Toni Blankenship MD Unavailable Chaya Nicholson PA-C Unavailable Aracelis Borja PhD Unavailable [phone] Josefa Mcneil PA-C Unavailable Angelika Coronel MD Unavailable [phone] Angelika Coronel MD Unavailable [phone] nAgelika Coronel MD Unavailable [phone] Aracelis Borja PhD LP Unavailable [phone] Encounter Details Date Type Department Care Team (Late Contact Info) Description 03/20/2021 MyC Medical Advice [facility] PREOP/PHASE II [address] [place] [address] Gladis Rubin, JIM Social History Tobacco Use Types Packs/Day [...] have Coronavirus / COVID-19? No / Unsure 03/23/2021 8:50 AM CDT documented as of this encounter Plan of Treatment Upcoming Encounters Date Type Department Care Team (Late Contact Info) Description 08/19/2024 12:00 PM TANK CREWMEMBER Office Visit [facility] Neurology Clinic [address] [place] [address] Marisel Garcia DO [address] [place] [address] 167975 documented as of this encounter Visit Diagnoses Not on filedocumented in this encounter Additional Health Concerns Assessment Noted Time PHQ-9 Depression Total Score: 3 02/22/20 21 11:51 AM CDT documented as of this encounter Care Teams Commanding Officer Homicide Squad Relationship Specialty Start Date End Date Catia Fontana PA-C [facility] [address], [place] [address] PCP - General Physician Corn Husker 02/15/21 Columba Elizalde MD [facility] [address], [place] [address] Neurology 02/15/21 08/05/22 Vanessa Mathew RN Specialty Relationship Assoc Neurology 02/22/21 Emily Ross, JIM Specialty Relationship Assoc 02/28/21 Zoya Morales APRN PAYROLL ACCOUNTING SPECIALIST [address] [place] [address] Assigned PCP 01/30/21 11/15/22 Columba Elizalde MD [facility] 1 [place] [address] Assigned Neuroscience Provider 03/04/21 03/31/21 Ari Gee MA Civilian Technician Neurology 03/20/21 Josefa Mcneil PA-C [facility], SURGERY 909 [facility] [address] [place] [address] Physician Corn Husker Pediatric Critical Care Medicine 03/23/21 Charlie Tavera APRN PAYROLL ACCOUNTING SPECIALIST [address] [place] [address] OK2279NC [place], [place] 318425 Assigned Neuroscience Provider 04/01/21 07/28/21 Josefa Mcneil PA-C [facility] SURGERY [address] [place] [address] Assigned Heart and Vascular Provider 04/20/21 09/08/21 Chaya Nicholson PA-C [address] [place] [address] Physician Corn Husker Anesthesiology 06/28/21 Toni Blankenship MD [address] [place] [address] 657275 Assigned Neuroscience Provider 07/29/21 09/06/22 Chaya Nicholson PA-C [address] [place] [address] Assigned Surgical Provider 07/15/21 07/11/23 Aracelis Borja, PhD LP [address] [place] [address] Assigned Behavioral Health Provider 08/26/21 09/13/22 Josefa Mcneil PA-C [facility] SURGERY [address] [place] [address] Assigned Gastroenterology Provider 09/09/21 12/08/21 Angelika Coronel MD [address] [place] [address] Fellow Neurology 03/06/22 08/05/22 Angelika Coronel MD [address] [place] [address] Neurology 08/06/22 Angelika Coronel MD [address] [place] [address] Assigned Neuroscience Provider 09/07/22 Aracelis Borja, PhD LP [address] [place] [address] Assigned Behavioral Health Provider 02/01/23 documented as of this encounter
--- OUTSIDE RECORDS SUMMARY | 2024-07-15 16:38 | XMS_ITS | Encounter Summary ---
Author Organization [facility] Address [address] [place] [address] Care Team Providers Care Dural Mechanic Name Role Phone Catia Fontana Jane PA-C Primary Care Provider Columba Elizalde MD Unavailable Vanessa Mathew RN Unavailable [phone] Emily Ross RN Unavailable Unavailable Zoya Morales TERRITORY SUPERVISOR SHANK CEMENTER HAND Unavailable + Ari Gee MA Unavailable Unavailable Josefa Mcneil PA-C Unavailable [phone] Charlie Tavera TERRITORY SUPERVISOR SHANK CEMENTER HAND Unavailable Josefa Mcneil-Georges Unavailable [phone] Chaya Nicholson PA-C Unavailable Toni Blankenship MD Unavailable Chaya Nicholson PA-C Unavailable Aracelis Borja PhD Unavailable [phone] Josefa Mcneil-Georges Unavailable Angelika Coronel MD Unavailable [phone] Angelika Coronel MD Unavailable [phone] Angelika Coronel MD Unavailable [phone] Aracelis Borja PhD LP Unavailable [phone] Encounter Details Date Type Department Care Team (Late Contact Info) Description 05/01/2021 MyC Medical Advice [facility] [address] [address] Vanessa Mathew RN Social History [...] (Late Contact Info) Description 08/19/2024 12:00 PM SALES FLOOR MANAGER Office Visit [facility] Neurology [address] [address] Marisel Garcia DO [address] [place] [address] [phone] documented as of this encounter Visit Diagnoses Not on filedocumented in this encounter Additional Health Concerns Assessment Noted Time PHQ-9 Depression Total Score: 3 05/19/20 21 11:51 AM CDT documented as of this encounter Care Teams Dural Mechanic Relationship Specialty Start Date End Date Catia Fontana PA-C [facility] [address] [address] PCP - General Physician Ski Patroller 02/15/21 Columba Elizalde MD [facility] [address] [place] [address] Neurology 02/15/21 08/05/22 Vanessa Mathew RN Specialty Appliances Sample Maker Neurology 02/22/21 Emily Ross, JIM Specialty Appliances Sample Maker 02/28/21 Zoya Morales APRN SHANK CEMENTER HAND [address] [place] [address] Assigned PCP 01/30/21 11/15/22 Ari Gee MA Open Soaper Tender Neurology 03/20/21 Josefa Mcneil PA-C [address] [address] Physician Ski Patroller Pediatric Critical Care Medicine 03/23/21 Charlie Tavera APRN SHANK CEMENTER HAND [address] [place] [address] [id number] [place], [place] [id number] Assigned Neuroscience Provider 04/01/21 07/28/21 Josefa Mcneil PA-C [facility] [address] [place] [address] Assigned Heart and Vascular Provider 04/20/21 09/08/21 Chaya Nicholson PA-C [address] [place] [address] Physician Ski Patroller Anesthesiology 06/28/21 Toni Blankenship MD [address] [place] [address] Assigned Neuroscience Provider 07/29/21 09/06/22 Chaya Nicholson PA-C [address] [place] [address] Assigned Surgical Provider 07/15/21 07/11/23 Aracelis Borja, PhD LP [address] [place] [address] Assigned Behavioral Health Provider 08/26/21 09/13/22 Josefa Mcneil PA-C [facility] SURGERY [address] [place] [address] Assigned Gastroenterology Provider 09/09/21 12/08/21 Angelika Coronel MD [address] [place] [address] Fellow Neurology 03/06/22 08/05/22 Angelika Coronel MD [address] [place] [address] Neurology 08/06/22 Angelika Coronel MD [address] [place] [address] Assigned Neuroscience Provider 09/07/22 Aracelis Borja, PhD LP [address] [place] [address] Assigned Behavioral Health Provider 02/01/23 documented as of this encounter
== END 2024-07-15 16:34 | disposition home or self-care (01) ==
PROVIDERS: PCP Physician Assistant Medical; Visit Provider Physician Assistant Medical
DX: Z13.228 Encounter for screening for other metabolic disorders (principal); Z13.220 Encounter for screening for lipoid disorders; Z13.21 Encounter for screening for nutritional disorder; Z13.29 Encounter for screening for other suspected endocrine disorder
CPT/HCPCS: 80053; 80061; 82306; 82607; 84443